=== PATIENT | male | born 1970 | race Caucasian/White ===

== ENCOUNTER 2017-07-11 10:43 | Emergency (ER) | payer BC, OTHER ==
[2017-07-11 11:25] VITALS: BP 151/85
[2017-07-11 11:29] LABS: ABSOLUTE LYMPHOCYTES (AUTO) 2.8 10^3/uL (0.5-4.7); ABSOLUTE MONOCYTES (AUTO) 0.6 10^3/uL (0.1-1.4); ABSOLUTE NEUT (AUTO) 10.6 10^3/uL (1.7-8.2); BASOPHILS % (AUTO) 0.3 % (0-2); EOSINOPHILS % (AUTO) 0.3 % (0-6); HEMATOCRIT 41.6 % (37.9-51.0); HEMOGLOBIN 14.2 g/dL (13.5-17.0); LYMPHOCYTES % (AUTO) 19.8 % (13-45); MEAN CORPUSCULAR HEMOGLOBIN 30.8 pg (27.0-33.4); MEAN CORPUSCULAR HGB CONC 34.1 g/dL (32.0-36.0); MEAN CORPUSCULAR VOLUME 90 fl (80-97); RED BLOOD COUNT 4.61 10^6/uL (4.35-5.55); RED CELL DISTRIBUTION WIDTH 13.4 % (11.5-14.0); SEGMENTED NEUTROPHILS % (AUTO) 75.6 % (42-78)
[2017-07-11 11:34] LABS: ANION GAP 11 (5-19); BLOOD UREA NITROGEN 15 mg/dL (7-20); CARBON DIOXIDE 28 mmol/L (22-30); CHLORIDE 103 mmol/L (98-107); CREATININE RESULT 1.06 mg/dL (0.52-1.25); GLUCOSE 128 mg/dL (75-110); POTASSIUM 3.6 mmol/L (3.6-5.0); SODIUM 141.8 mmol/L (137-145)
[2017-07-11 11:42] LABS: CALCIUM 9.5 mg/dL (8.4-10.2)
--- NOTE | 2017-07-11 11:47 | RADIOLOGY REPORT (SQ) ---
EXAM DESCRIPTION: CT HEAD WITHOUT COMPLETED DATE/TIME: 07/11/2017 11:27 am REASON FOR STUDY: headache COMPARISON: 01/02/2008 TECHNIQUE: Axial images acquired through the brain without intravenous contrast. Images reviewed wi th bone, brain and subdural windows. Images stored on PACS. All CT scanners at this facility use dose modulation, iterative reconstruction, and/or weight based d osing when appropriate to reduce radiation dose to as low as reasonably achievable (ALARA). [facility]: Dose Right [facility]: CareDose [facility]: Dose Right [facility]: Teradose 4D [facility]: Smart Technologies RADIATION DOSE: Up-to-date CT equipment and radiation dose reduction techniques were employed. CTDIv ol: 64.6 mGy. DLP: 1163 mGy-cm. mGy. LIMITATIONS: None. FINDINGS: VENTRICLES: Normal size and contour. CEREBRUM: No midline shift. There is encephalomalacia in left frontal lobe. There is no hemorrhage. Normal russo/white matter differentiation. No areas of low density in the white matter. CEREBELLUM: No masses. No hemorrhage. No alteration of density. No evidence for acute infarction. EXTRAAXIAL SPACES: No fluid collections. No masses. ORBITS AND GLOBE: No intra- or extraconal masses. Normal contour of globe without masses. CALVARIUM: No fracture. PARANASAL SINUSES: No fluid or mucosal thickening. SOFT TISSUES: No mass or hematoma. OTHER: No other significant finding. 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 COMMENT: Quality ID # [id number]: Final reports with documentation of one or more dose reduction techniques (e.g., Automated exposure control, adjustment of the mA and/or kV according to patient size, use of iterative reconstruction technique) TECHNICAL DOCUMENTATION: JOB ID: [id number] [employer]- All Rights Reserved
[2017-07-11 12:03] LABS: APPEARANCE,URINE SLIGHTLY-CLOUDY; BILIRUBIN,URINE NEGATIVE (NEGATIVE); GLUCOSE, URINE NEGATIVE (NEGATIVE); KETONES,URINE NEGATIVE (NEGATIVE); LEUKOCYTE ESTERASE,URINE NEGATIVE (NEGATIVE); NITRITE,URINE NEGATIVE (NEGATIVE); PROTEIN,URINE NEGATIVE (NEGATIVE); URINE SPECIFIC GRAVITY 1.015; UROBILINOGEN,URINE NEGATIVE mg/dL (<2.0)
[2017-07-11] MEDS ORDERED: DIPHENHYDRAMINE HCL 50 MG/ML VIAL IV ONE (12:05)
[2017-07-11] MEDS ORDERED: HYDROMORPHONE HCL INJ/PF 2 MG/ML AMPULE IV ONE (12:05)
--- NOTE | 2017-07-11 14:03 | ER Document Report ---
ED Headache - General Chief Complaint: Headache Stated Complaint: VISION PROBLEM Time Seen by Provider: 07/11/17 10:57 - HPI Patient complains to provider of: Headache - Sudden onset right-sided headache extending from his right eye into his right neck into his right shoulder. Patient reports: Occasional migraines - History of migraines but has not had any in years Onset: Just prior to arrival Onset was: Gradual Timing: Still present Quality of pain: Achy, Pressure, Throbbing Severity: Severe Context: denies: CO exposure, Head injury, Insect bite, Meningitis exposure, Tick bite, Other Preceding symptoms: Visual disturbance - States that his vision seems blurry Associated symptoms: None Exacerbated by: Light, Noise Similar symptoms previously: No Recently seen / treated by doctor: No - Related Data Allergies/Adverse Reactions: No Known Allergies Allergy (Unverified 07/11/17 11:12) Home Medications: Current Home Medications Duloxetine HCl 1 cap PO DAILY 07/11/17 [History] Gabapentin 1 cap PO BID 07/11/17 [History] Levothyroxine Sodium 1 tab PO DAILY 07/11/17 [History] Past Medical History - Social History Smoking Status: Current Every Day Smoker Frequency of alcohol use: Social Drug Abuse: None Family History: Reviewed & Not Pertinent - Past Medical History Cardiac Medical History: Reports: Hx Hypercholesterolemia Neurological Medical History: Reports: Hx Migraine Past Surgical History: Reports: Hx Abdominal Surgery, Hx Nose Surgery Review of Systems - Review of Systems Constitutional: No symptoms reported EENT: No symptoms reported Cardiovascular: No symptoms reported Respiratory: No symptoms reported Musculoskeletal: See HPI Neurological/Psychological: See HPI -: Yes All other systems reviewed and negative Physical Exam - Vital signs Vitals: Temp Resp BP Pulse Ox 98.5 F 25 H 151/85 H 93 07/11/17 11:22 07/11/17 11:22 07/11/17 11:22 07/11/17 11:22 - Notes Notes: PHYSICAL EXAM GENERAL: Alert, interacts well. HEAD: Normocephalic, atraumatic. EYES: Pupils equal, round, and reactive to light. Extraocular movements intact. ENT: Oral mucosa moist, tongue midline. NECK: Full range of motion. Supple. Trachea midline. LUNGS: Clear to auscultation bilaterally, no wheezes, rales, or rhonchi. No respiratory distress. HEART: Regular rate and rhythm. No murmurs, gallops, or rubs. ABDOMEN: Soft, nondistended, nontender. No guarding, rebound, or rigidity.. Bowel sounds present in all 4 quadrants. EXTREMITIES: Moves all 4 extremities spontaneously. No edema, radial and dorsalis pedis pulses 2/4 bilaterally. No cyanosis. NEUROLOGICAL: Alert and oriented x4. Normal speech. PSYCH: Normal affect, normal mood. SKIN: Warm, dry, normal turgor. No rashes or lesions noted. - HEENT Visual acuity- Right eye: 20/50 Visual acuity- Left eye: 20/30 Visual acuity- Both eyes: 20/25 Corrective lenses worn: No Course - Re-evaluation Re-evalutation: 07/11/17 14:02 Patient does not have any focal neurologic deficits, nuchal rigidity, vital signs are within normal limits no papilledema. Patient is otherwise no acute distress and hemodynamically stable. Low index for suspicion of acute subarachnoid hemorrhage, meningitis or mass. Low suspicion for acute life- threatening etiology with intact neuro exam therefore no additional imaging or laboratory testing is indicated. Will discharge patient home with strict follow -up with PCP for blood pressure check within the next week. - Vital Signs Vital signs: Temp Pulse Resp BP Pulse Ox 98.5 F 25 H 151/85 H 93 07/11/17 11:22 07/11/17 11:22 07/11/17 11:22 07/11/17 11:22 - Laboratory Result Diagrams: 07/11/17 10:50 07/11/17 10:50 Laboratory results interpreted by me: 07/11/17 07/11/17 10:50 10:50 WBC 14.0 H Absolute Neutrophils 10.6 H Glucose 128 H - Diagnostic Test Radiology reviewed: Image reviewed, Reports reviewed Discharge - Discharge Clinical Impression: Migraine Qualifiers: Migraine type: unspecified Status migrainosus presence: without status migrainosus Intractability: not intractable Qualified Code(s): G43.909 - Migraine, unspecified, not intractable, without status migrainosus Condition: Good Disposition: HOME, SELF-CARE Additional Instructions: HEADACHE: The physician does not feel that the headache you are experiencing has a serious underlying cause. Most headaches are due to emotional stress, with resultant muscle tension (tension headache). Occasionally, headaches are secondary to changes in the blood vessels of the scalp (vascular headache and migraine headache). Sometimes, a headache is the first symptom of another developing illness, such as a viral infection. You have no evidence of stroke, bleeding, meningitis, or other serious cause of your headache. The treatment of headaches varies with the severity and cause of the pain. Not all headaches need pain shots. In fact, there is evidence that using narcotics for headaches may make them worse in the long run. The physician will determine the therapy that's in your best interest. If you develop a fever, if the headache is different from any you've previously experienced, or if the headache progressively worsens, then call your physician at once or go to the emergency room. USE OF DIPHENHYDRAMINE: Diphenhydramine (Benadryl) is an antihistamine and has been recommended to help treat your headache and to prevent side effects of other medications used to treat headaches. The medication can be repeated four times daily. Age Elixir (12.5 mg/tsp) 25 mg pill adult 1-2 tabs Antihistamines may cause drowsiness, especially with the first dose. Do not operate machinery or drive while under the effects of the medication. Do not combine the medication with alcohol, or with any other medication without talking to your doctor. PAIN MEDICATION INJECTION: You have received an injection of a pain medication. You should experience significant pain relief within 45 minutes. This drug is a narcotic - - it will impair your judgement, slow your reaction time and make you sleepy ( as well as relieve your pain). Narcotics also can cause nausea. You should not drive, work with machinery, or perform any task requiring mental alertness until all effects of the medication are gone -- six to eight hours. Do not take any alcohol, or sedatives, and do not take any other medication without checking with your physician. FOLLOW-UP CARE: If you have been referred to a physician for follow-up care, call the physician s office for an appointment as you were instructed or within the next two days. If you experience worsening or a significant change in your symptoms, notify the physician immediately or return to the Emergency Department at any time for re-evaluation. Forms: Return to Work Referrals: [facility] [Provider Group] - Follow up in 3-5 days
--- NOTE | 2017-07-12 08:35 | EKG REPORT ---
SEVERITY:- NORMAL ECG - SINUS RHYTHM : Confirmed by: Uli Madsen 12-Jul-2017 08:34:45
== END 2017-07-11 14:32 | disposition home or self-care (01) ==
LOC: ER 10:43
DX: G43.909 Migraine, unspecified, not intractable, without status migrainosus (principal); F17.200 Nicotine dependence, unspecified, uncomplicated
CPT/HCPCS: 93005; 99284; 96374; 96375; 36415; 85025; 80048; 81001; 70450; 93010; J1200; J1170

== ENCOUNTER 2017-07-12 12:29 | Emergency (ER) | payer OTHER ==
--- NOTE | 2017-07-12 13:05 | RADIOLOGY REPORT (SQ) ---
EXAM DESCRIPTION: CT HEAD WITHOUT COMPLETED DATE/TIME: 07/12/2017 12:37 pm REASON FOR STUDY: bed 20 stroke alert COMPARISON: 01/02/2008, 07/11/2017 CT brain TECHNIQUE: Axial images acquired through the brain without intravenous contrast. Images reviewed wi th bone, brain and subdural windows. Images stored on PACS. All CT scanners at this facility use dose modulation, iterative reconstruction, and/or weight based d osing when appropriate to reduce radiation dose to as low as reasonably achievable (ALARA). [facility]: Dose Right [facility]: CareDose [facility]: Dose Right [facility]: Teradose 4D [facility]: [employer] RADIATION DOSE: 64 mGy. LIMITATIONS: None. FINDINGS: Since the study yesterday, patient has developed a moderate size nonhemorrhagic right occi pital infarct. A subacute appearing left frontal perisylvian infarct is present with low attenuation in the cortex a nd subcortical white matter with sulcal effacement on axial image 17 through 20. This is stable comp ared to yesterday's study More chronic appearing left frontal cortical infarct high over the convexity stable compared to yeste rday's study. Chronic appearing right frontal perisylvian cortex and subcortical infarct, unchanged from yesterday. No acute intracranial hemorrhage. No midline shift. Ventricles and extra-axial CSF spaces are unrem arkable. Orbits, paranasal sinuses, mastoid air cells unremarkable. No calvarial fracture. This report was discussed with Dr. Mckee in the emergency room IMPRESSION: Since yesterday's CT, patient has developed a moderate size right occipital infarct, non hemorrhagic. Subacute infarct in the left frontal perisylvian region Leon chronic appearing infarcts in the bifrontal cortex and subcortical white matter high over the c onvexities COMMENT: Pertinent findings on the imaging study reported as a CRITICAL RESULT to Dr Mckee at12:55 on 07/12/2017. Category of Critical Result: CT code stroke Quality ID # 436: Final reports with documentation of one or more dose reduction techniques (e.g., Au tomated exposure control, adjustment of the mA and/or kV according to patient size, use of iterative reconstruction technique) TECHNICAL DOCUMENTATION: JOB ID: [id number] [employer]- All Rights Reserved
--- NOTE | 2017-07-12 13:06 | RADIOLOGY REPORT (SQ) ---
EXAM DESCRIPTION: CHEST SINGLE VIEW COMPLETED DATE/TIME: 07/12/2017 12:41 pm REASON FOR STUDY: bed 20 stroke alert COMPARISON: None. EXAM PARAMETERS: NUMBER OF VIEWS: One view. TECHNIQUE: Single frontal radiographic view of the chest acquired. RADIATION DOSE: NA LIMITATIONS: None. FINDINGS: LUNGS AND PLEURA: No opacities, masses or pneumothorax. No pleural effusion. MEDIASTINUM AND HILAR STRUCTURES: No masses. Contour normal. HEART AND VASCULAR STRUCTURES: Heart normal in size. Normal vasculature. BONES: No acute findings. HARDWARE: None in the chest. OTHER: No other significant finding. IMPRESSION: NO ACUTE RADIOGRAPHIC FINDING IN THE CHEST. TECHNICAL DOCUMENTATION: JOB ID: [id number]
[2017-07-12 13:08] LABS: PROTHROMBIN TIME 12.5 SEC (11.4-15.4)
[2017-07-12 13:09] LABS: PARTIAL THROMBOPLASTIN TIME 23.7 SEC (23.5-35.8)
[2017-07-12] MEDS ORDERED: MORPHINE SULFATE 10 MG/ML INJ IV ONE ×2 (13:14→16:34)
[2017-07-12] MEDS ORDERED: ONDANSETRON HCL INJ/PF 4 MG/2 ML SDV IV ONE ×2 (13:14→21:57)
--- NOTE | 2017-07-12 13:20 | ER Document Report ---
ED General - General Information source: Patient - HPI Onset: Yesterday Onset/Duration: Sudden Quality of pain: Throbbing Associated symptoms: Other - see above <CRYSTAL PULIDO - Last Filed: 07/12/17 13:29> <RUBEN WILLIAMSON - Last Filed: 07/12/17 16:50> - General Chief Complaint: S/S of Possible Stroke Stated Complaint: POSSIBLE STROKE Time Seen by Provider: 07/12/17 12:57 Notes: Patient is a 47 year old male who presents to the ED with complaints of a throbbing headache in the back on the right with sudden onset 1100 yesterday. Patient states it felt like he was kicked in the back of the head and he was driving and had to slab puller. Patient states he also has blurred vision that is worse peripherally bilaterally. He denies a history of headaches or migraines and has not been evaluated in the past prior to this episode. He was seen in the ED yesterday for this same headache. He denies nausea or vomiting or weakness in is extremities. He also has some photophobia. (CRYSTAL PULIDO) - Related Data Allergies/Adverse Reactions: No Known Allergies Allergy (Unverified 07/11/17 11:12) Past Medical History - General Information source: Patient - Social History Smoking Status: Current Every Day Smoker Cigarette use (# per day): Yes - 1- 1 1/2 pack Family History: Reviewed & Not Pertinent - Past Medical History Cardiac Medical History: Reports: Hx Hypercholesterolemia Psychiatric Medical History: Reports: Hx Depression, Hx Post Traumatic Stress Disorder Past Surgical History: Reports: Hx Abdominal Surgery, Hx Nose Surgery <CRYSTAL PULIDO - Last Filed: 07/12/17 13:29> Review of Systems - Review of Systems Constitutional: No symptoms reported EENT: See HPI, Blurred vision - worse in periphreals bilaterally, Other - photophobia Cardiovascular: No symptoms reported Respiratory: No symptoms reported Gastrointestinal: See HPI. denies: Nausea, Vomiting Genitourinary: No symptoms reported Male Genitourinary: No symptoms reported Musculoskeletal: No symptoms reported Skin: No symptoms reported Hematologic/Lymphatic: No symptoms reported Neurological/Psychological: See HPI, Headaches. denies: Weakness <CRYSTAL PULIDO - Last Filed: 07/12/17 13:29> Physical Exam - General General appearance: Appears well, Alert, Other - HEENT Head: Normocephalic, Atraumatic Eyes: Other - states vision is blurry, worse peripherally and improves some centrally Extraocular movements intact: Yes Pupils: PERRL Neck: Normal - Respiratory Respiratory status: No respiratory distress Breath sounds: Normal - Cardiovascular Rhythm: Regular, Other - with occasional premature beat Heart sounds: Normal auscultation Murmur: No - Abdominal Distension: No distension - Back Back: Normal - Extremities General upper extremity: Normal inspection, Normal ROM General lower extremity: Normal inspection, Normal ROM - Neurological Neuro grossly intact: Yes Cognition: Normal Orientation: AAOx4 Jie Coma Scale Eye Opening: Spontaneous [place] Coma Scale Verbal: Oriented Jie Coma Scale Motor: Obeys Commands Jie Coma Scale Total: 15 Speech: Normal Cerebellar coordination: Other - no ataxia at all - Psychological Associated symptoms: Normal affect, Normal mood - Skin Skin Temperature: Warm Skin Moisture: Dry Skin Color: Normal <CRYSTAL PULIDO - Last Filed: 07/12/17 13:29> - Vital signs Vitals: Pulse Ox 97 07/12/17 12:40 Course - Laboratory Result Diagrams: 07/12/17 12:55 07/12/17 12:55 <CRYSTAL PULIDO - Last Filed: 07/12/17 13:29> - Laboratory Result Diagrams: 07/12/17 12:55 07/12/17 12:55 - Diagnostic Test Radiology reviewed: Image reviewed, Reports reviewed - CT scan shows a new moderate-sized nonhemorrhagic right occipital infarct with a stable subacute left frontal perisylvian infarct and chronic right frontal perisylvian cortical and subcortical infarcts. MRI shows the right occipital infarct to be recent and the left frontal infarct to be a few days old. - EKG Interpretation by Me EKG shows normal: Picher, Intervals, QRS Complexes, ST-T Waves Rate: Normal - 61 Rhythm: PVC's - Ventricular trigeminy When compared to previous EKG there are: Changes noted - Consults Dr. Jeffries Time consulted: 16:30 Consulted provider: other - Dr. Jeffries of the neurology service at [facility] will accept the patient for Dr. Caraballo's service. The patient will be put on a waiting list. The recommendation is to give only 1 full strength aspirin daily at this time. - Transfer of Care Care transferred to following provider: Dr. Awad <RUBEN WILLIAMSON - Last Filed: 07/12/17 16:50> - Re-evaluation Re-evalutation: 07/12/17 15:49 The patient suffered a stroke yesterday which is apparent on the CT scan today. He also suffered a stroke a few days ago. As he has 1 stroke that is a few days old and another stroke which is just over one day old, he is not a TPA candidate. (RUBEN WILLIAMSON) - Vital Signs Vital signs: Temp Pulse Resp BP Pulse Ox 57 L 20 152/81 H 94 07/12/17 15:40 07/12/17 15:45 07/12/17 15:45 07/12/17 15:45 - Laboratory Laboratory results interpreted by me: 07/12/17 07/12/17 12:55 12:55 WBC 15.7 H Absolute Neutrophils 9.7 H Absolute Lymphocytes 5.1 H Total Protein 6.2 L - Transfer of Care Notes: 07/12/17 16:50 Patient is pending transfer to [facility]. (RUBEN WILLIAMSON) Discharge <CRYSTAL PULIDO - Last Filed: 07/12/17 13:29> <RUBEN WILLIAMSON - Last Filed: 07/12/17 16:50> - Discharge Clinical Impression: Blurred vision, bilateral CVA (cerebrovascular accident) Qualifiers: CVA mechanism: embolism Precerebral and cerebral artery: unspecified cerebral artery Qualified Code(s): I63.40 - Cerebral infarction due to embolism of unspecified cerebral artery Condition: Stable Disposition: [facility] Scribe Documentation - Scribe Written by Scribe:: jose guadalupe Mandujano, 07/12/2017, 1315 acting as scribe for :: Rylee <CRYSTAL PULIDO - Last Filed: 07/12/17 13:29>
[2017-07-12 13:27] LABS: ABSOLUTE BASOPHILS # (AUTO) 0.1 10^3/uL (0.0-0.2); ABSOLUTE EOSINOPHILS # (AUTO) 0.1 10^3/uL (0.0-0.6); ABSOLUTE LYMPHOCYTES (AUTO) 5.1 10^3/uL (0.5-4.7); ABSOLUTE MONOCYTES (AUTO) 0.7 10^3/uL (0.1-1.4); ABSOLUTE NEUT (AUTO) 9.7 10^3/uL (1.7-8.2); BASOPHILS % (AUTO) 0.7 % (0-2); EOSINOPHILS % (AUTO) 0.5 % (0-6); HEMATOCRIT 40.7 % (37.9-51.0); HEMOGLOBIN 14.1 g/dL (13.5-17.0); HGB HCT DIFFERENCE 1.6; LYMPHOCYTES % (AUTO) 32.4 % (13-45); MEAN CORPUSCULAR HGB CONC 34.7 g/dL (32.0-36.0); MEAN CORPUSCULAR VOLUME 89 fl (80-97); MONOCYTES % (AUTO) 4.7 % (3-13); RED BLOOD COUNT 4.57 10^6/uL (4.35-5.55); RED CELL DISTRIBUTION WIDTH 13.6 % (11.5-14.0); SEGMENTED NEUTROPHILS % (AUTO) 61.7 % (42-78); WHITE BLOOD COUNT 15.7 10^3/uL (4.0-10.5)
[2017-07-12 13:31] LABS: ALANINE AMINOTRANSFERASE 42 U/L (21-72); ALBUMIN 3.8 g/dL (3.5-5.0); ALKALINE PHOSPHATASE 71 U/L (38-126); ANION GAP 8 (5-19); ASPARTATE AMINO TRANSFERASE 21 U/L (17-59); BILIRUBIN,DIRECT 0.4 mg/dL (0.0-0.4); BILIRUBIN,TOTAL 0.6 mg/dL (0.2-1.3); BLOOD UREA NITROGEN 13 mg/dL (7-20); CALCIUM 9.4 mg/dL (8.4-10.2); CARBON DIOXIDE 25 mmol/L (22-30); CHLORIDE 104 mmol/L (98-107); CREATINE KINASE 95 U/L (55-170); CREATINE KINASE MB 0.74 ng/mL (<4.55); CREATININE RESULT 0.92 mg/dL (0.52-1.25); GLUCOSE 92 mg/dL (75-110); POTASSIUM 3.9 mmol/L (3.6-5.0); SODIUM 137.1 mmol/L (137-145); TOTAL PROTEIN 6.2 g/dL (6.3-8.2)
[2017-07-12 13:32] LABS: TROPONIN I < 0.012 ng/mL
--- NOTE | 2017-07-12 15:47 | RADIOLOGY REPORT (SQ) ---
EXAM DESCRIPTION: MRI HEAD WITHOUT; MRA HEAD WITHOUT COMPLETED DATE/TIME: 07/12/2017 3:28 pm; 07/12/2017 3:27 pm REASON FOR STUDY: acute R occipital infarct, L frontal subacute inf COMPARISON: CT brain 01/02/2008, 07/11/2017, 07/12/2017 TECHNIQUE: Multiplanar imaging includes non-contrasted T1, T2, FLAIR, and diffusion with ADC map seq uences. Images stored on PACS. MRA exam [place] was performed with 3D [id number] imaging. Source images and maximum in tensity projected images were reviewed. LIMITATIONS: None. FINDINGS: ANATOMY: No developmental anomalies. Normal vascular flow voids. Pituitary fossa normal. CSF SPACES: Normal in size and contour. No hemorrhage. CEREBRUM: A moderate size acute nonhemorrhagic infarct is present along the right inferior occipital lobe, best shown on coronal T2 images 21 through 29. This is new compared to CT exam 07/11/2017 and s imilar compared to CT earlier today. There is a left frontal perisylvian early subacute nonhemorrhagic infarct unchanged from CT exams 06/30 and 07/12/2017 A chronic appearing nonhemorrhagic infarct right frontal perisylvian cortex and subcortical white mat ter coronal image 15 and axial image 19. Remainder of the brain parenchyma is otherwise unremarkable. No acute intracranial hemorrhage. No m idline shift. There is sulcal effacement in the right occipital and left frontal regions from acute/ early subacute infarcts. POSTERIOR FOSSA: No signal alteration. No hemorrhage. No edema, masses or mass effect. Internal toña tory canals, cerebello-pontine angles, mastoids normal. DIFFUSION IMAGING: Positive for acute ischemic change inferior right occipital lobe, early subacute i schemic change left frontal perisylvian region. ORBITS: No masses. Globes normal. PARANASAL SINUSES: No fluid levels. Mucosa normal. [place] MRA: No [place] stenosis, vascular malformation, or aneurysm. No vessel wall irregularity to suggest vasculitis These findings were discussed with Dr. Mckee in the emergency room. IMPRESSION: Nonhemorrhagic infarcts in multiple vascular distributions, worrisome for embolic diseas e. Acute right occipital, early subacute left frontal perisylvian infarct. Unremarkable [place] MRA EVIDENCE OF ACUTE STROKE: NO. TECHNICAL DOCUMENTATION: JOB ID: [id number]- All Rights Reserved
--- NOTE | 2017-07-12 15:47 | RADIOLOGY REPORT (SQ) ---
EXAM DESCRIPTION: MRI HEAD WITHOUT; MRA HEAD WITHOUT COMPLETED DATE/TIME: 07/12/2017 3:28 pm; 07/12/2017 3:27 pm REASON FOR STUDY: acute R occipital infarct, L frontal subacute inf COMPARISON: CT brain 01/02/2008, 07/11/2017, 07/12/2017 TECHNIQUE: Multiplanar imaging includes non-contrasted T1, T2, FLAIR, and diffusion with ADC map seq uences. Images stored on PACS. MRA exam [place] was performed with 3D [id number] imaging. Source images and maximum in tensity projected images were reviewed. LIMITATIONS: None. FINDINGS: ANATOMY: No developmental anomalies. Normal vascular flow voids. Pituitary fossa normal. CSF SPACES: Normal in size and contour. No hemorrhage. CEREBRUM: A moderate size acute nonhemorrhagic infarct is present along the right inferior occipital lobe, best shown on coronal T2 images 21 through 29. This is new compared to CT exam 07/11/2017 and s imilar compared to CT earlier today. There is a left frontal perisylvian early subacute nonhemorrhagic infarct unchanged from CT exams 06/30 and 07/12/2017 A chronic appearing nonhemorrhagic infarct right frontal perisylvian cortex and subcortical white mat ter coronal image 15 and axial image 19. Remainder of the brain parenchyma is otherwise unremarkable. No acute intracranial hemorrhage. No m idline shift. There is sulcal effacement in the right occipital and left frontal regions from acute/ early subacute infarcts. POSTERIOR FOSSA: No signal alteration. No hemorrhage. No edema, masses or mass effect. Internal toña tory canals, cerebello-pontine angles, mastoids normal. DIFFUSION IMAGING: Positive for acute ischemic change inferior right occipital lobe, early subacute i schemic change left frontal perisylvian region. ORBITS: No masses. Globes normal. PARANASAL SINUSES: No fluid levels. Mucosa normal. [place] MRA: No [place] stenosis, vascular malformation, or aneurysm. No vessel wall irregularity to suggest vasculitis These findings were discussed with Dr. Mckee in the emergency room. IMPRESSION: Nonhemorrhagic infarcts in multiple vascular distributions, worrisome for embolic diseas e. Acute right occipital, early subacute left frontal perisylvian infarct. Unremarkable [place] MRA EVIDENCE OF ACUTE STROKE: NO. TECHNICAL DOCUMENTATION: JOB ID: [id number]- All Rights Reserved
[2017-07-12 16:04] LABS: APPEARANCE,URINE CLEAR; BILIRUBIN,URINE NEGATIVE (NEGATIVE); GLUCOSE, URINE NEGATIVE (NEGATIVE); KETONES,URINE NEGATIVE (NEGATIVE); LEUKOCYTE ESTERASE,URINE NEGATIVE (NEGATIVE); NITRITE,URINE NEGATIVE (NEGATIVE); PROTEIN,URINE NEGATIVE (NEGATIVE); URINE SPECIFIC GRAVITY 1.006; UROBILINOGEN,URINE NEGATIVE mg/dL (<2.0)
[2017-07-12 16:19] LABS: URINE BARBITURATES SCREEN NEGATIVE; URINE METHADONE SCREEN NEGATIVE; URINE OPIATES LOW NEGATIVE; URINE PHENCYCLIDINE SCREEN NEGATIVE
[2017-07-12] MEDS ORDERED: ASPIRIN 325 MG TABLET PO ONE (16:35)
--- NOTE | 2017-07-12 17:42 | RADIOLOGY REPORT (SQ) ---
EXAM DESCRIPTION: CAROTID DOPPLER COMPLETED DATE/TIME: 07/12/2017 5:25 pm REASON FOR STUDY: bilateral CVA's COMPARISON: None. TECHNIQUE: Grayscale ultrasound, Doppler velocity and spectra, and color Doppler images acquired of the extra-cranial carotid and vertebral arteries. Images stored on PACS. LIMITATIONS: None. FINDINGS: RIGHT CAROTID CCA Velocities: Within normal limits. ICA Velocities Peak systolic 0.89 m/s. End diastolic 0.41 m/s. Proximal ICA/CCA peak systolic ratio 1.3. Spectra normal. No significant plaque. LEFT CAROTID CCA Velocities: Within normal limits. ICA Velocities Peak systolic 0.85 m/s. End diastolic 0.38 m/s. Proximal ICA/CCA peak systolic ratio 1.1. Spectra normal. No significant plaque. VERTEBRAL ARTERIES: Antegrade flow. Normal waveforms. SUBCLAVIAN ARTERIES: No finding. OTHER: No other significant finding. IMPRESSION: NO HEMODYNAMICALLY SIGNIFICANT STENOSIS. COMMENT: Quality ID #[id number]: Velocity criteria are extrapolated from the diameter data as defined by t he Society of Radiologists in Ultrasound Consensus Conference. Radiology 2003: 229; 340-346. TECHNICAL DOCUMENTATION: JOB ID: [id number] [employer]- All Rights Reserved
[2017-07-12] MEDS: MORPHINE SULFATE 10 MG/ML INJ IV PRN (20:42)
[2017-07-12] MEDS ORDERED: LORAZEPAM INJ 2 MG/1 ML VIAL IV ONE (21:23)
--- NOTE | 2017-07-12 21:52 | RADIOLOGY REPORT (SQ) ---
EXAM DESCRIPTION: CT HEAD WITHOUT COMPLETED DATE/TIME: 07/12/2017 9:29 pm REASON FOR STUDY: Abrupt DOWNEY worsening. COMPARISON: Earlier the same day. TECHNIQUE: Axial images acquired through the brain without intravenous contrast. Images reviewed wi th bone, brain and subdural windows. Images stored on PACS. All CT scanners at this facility use dose modulation, iterative reconstruction, and/or weight based d osing when appropriate to reduce radiation dose to as low as reasonably achievable (ALARA). [facility]: Dose Right [facility]: CareDose [facility]: Dose Right [facility]: Teradose 4D [facility]: [employer] RADIATION DOSE: Up-to-date CT equipment and radiation dose reduction techniques were employed. CTDIv ol: 64.6 mGy. DLP: 1163 mGy-cm. mGy. LIMITATIONS: None. FINDINGS: VENTRICLES: Normal size and contour. CEREBRUM: Areas of decreased attenuation in the left frontal lobe, right frontal lobe and right occip ital lobe are stable in appearance. No intracranial hemorrhage. No midline shift. No change in the mass effect associated with the left frontal lobe and right occipital lobe lesions. CEREBELLUM: No masses. No hemorrhage. No alteration of density. No evidence for acute infarction. EXTRAAXIAL SPACES: No fluid collections. No masses. ORBITS AND GLOBE: No intra- or extraconal masses. Normal contour of globe without masses. CALVARIUM: No fracture. PARANASAL SINUSES: No fluid or mucosal thickening. SOFT TISSUES: No mass or hematoma. OTHER: No other significant finding. IMPRESSION: No interval change. Evolving infarcts. No hemorrhage. COMMENT: Quality ID # [id number]: Final reports with documentation of one or more dose reduction techniques (e.g., Automated exposure control, adjustment of the mA and/or kV according to patient size, use of iterative reconstruction technique) TECHNICAL DOCUMENTATION: JOB ID: [id number] [employer]- All Rights Reserved
--- NOTE | 2017-07-12 22:15 | ER Document Report ---
Doctor's Note Notes: 07/12/17 22:09 Patient awaiting transfer still. He developed increasing headache which seemed like a fairly significant changes or repeat CT was done to ensure there is no hemorrhage. This showed no change in mass-effect and no hemorrhage. We will continue symptomatic care at this point. Carotid ultrasound showed no significant stenosis. 07/12/17 22:15 Spoke with the patient and family and reviewed CT findings with them. Headache seems slightly improved after receiving some medication here. We are still awaiting a bed at [facility]. (MODESTO HINOJOSA) 07/13/17 09:50 Patient has been reevaluated multiple times, patient has normal speech is in no distress, is otherwise well-appearing. I evaluated the patient physically lab work and imaging and I had a long discussion with him multiple times. He has been given pain control for his headache EKG lab work were performed for his new onset chest pain. Patient will require further evaluation. I did explain to him that first CT did not show an acute stroke however the repeat did show the stroke and that it was appropriate discharge at that time (CHASTITY DORANTES)
--- NOTE | 2017-07-12 22:53 | EKG REPORT ---
SEVERITY:- ABNORMAL ECG - SINUS RHYTHM VENTRICULAR TRIGEMINY : Confirmed by: Uli Madsen 12-Jul-2017 22:53:34
[2017-07-13] MEDS: MORPHINE SULFATE 10 MG/ML INJ IV PRN (01:46)
[2017-07-13] MEDS ORDERED: MORPHINE SULFATE 10 MG/ML INJ IV ONE ×2 (04:08→07:52)
[2017-07-13] MEDS ORDERED: NICOTINE 14 MG/24 HR PATCH.TD24 TD ONE (09:14)
[2017-07-13 09:37] LABS: CREATINE KINASE MB 0.92 ng/mL (<4.55)
[2017-07-13 09:38] LABS: TROPONIN I < 0.012 ng/mL
[2017-07-13 09:54] VITALS: BP 142/86
[2017-07-13] MEDS ORDERED: ASPIRIN 325 MG TABLET PO SCH (10:00)
--- NOTE | 2017-07-13 10:17 | EKG REPORT ---
SEVERITY:- ABNORMAL ECG - SINUS RHYTHM VENTRICULAR TRIGEMINY : Confirmed by: Uli Madsen 13-Jul-2017 10:16:08
== END 2017-07-13 10:00 | disposition short-term general hospital (02) ==
LOC: ER 12:29
DX: I63.40 Cerebral infarction due to embolism of unspecified cerebral artery (principal); H53.8 Other visual disturbances; R51 Headache; W50.1XXA Accidental kick by another person, initial encounter; F17.210 Nicotine dependence, cigarettes, uncomplicated
CPT/HCPCS: 93005 ×2; 96376; 99285; 96374; 96375; 36415; 82553; 82550; 85025; 85652; 85610; 85730; 80053; 81001; 84484; 80307; 93880; 70551; 70544; 71010; 70450; 93010 ×2; J2270 ×2; J2060; J2405

== ENCOUNTER 2017-09-13 12:56 | Emergency (ER) | payer OTHER ==
[2017-09-13 13:01] VITALS: BP 135/87
--- NOTE | 2017-09-13 13:56 | RADIOLOGY REPORT (SQ) ---
EXAM DESCRIPTION: CT HEAD WITHOUT COMPLETED DATE/TIME: 09/13/2017 1:48 pm REASON FOR STUDY: visual changes L sided DOWNEY COMPARISON: 07/12/2017. TECHNIQUE: Axial images acquired through the brain without intravenous contrast. Images reviewed wi th bone, brain and subdural windows. Images stored on PACS. All CT scanners at this facility use dose modulation, iterative reconstruction, and/or weight based d osing when appropriate to reduce radiation dose to as low as reasonably achievable (ALARA). [facility]: Dose Right [facility]: CareDose [facility]: Dose Right [facility]: Teradose 4D [facility]: Smart [employer] RADIATION DOSE: Up-to-date CT equipment and radiation dose reduction techniques were employed. CTDIv ol: 64.6 mGy. DLP: 1163 mGy-cm. mGy. LIMITATIONS: None. FINDINGS: VENTRICLES: Normal size and contour. CEREBRUM: No masses. No hemorrhage. No midline shift. Old infarcts in the right and left frontal l obe and right occipital lobe. No evidence for acute infarction. Normal russo/white matter differentia tion. No areas of low density in the white matter. CEREBELLUM: No masses. No hemorrhage. No alteration of density. No evidence for acute infarction. EXTRAAXIAL SPACES: No fluid collections. No masses. ORBITS AND GLOBE: No intra- or extraconal masses. Normal contour of globe without masses. CALVARIUM: No fracture. PARANASAL SINUSES: No fluid or mucosal thickening. SOFT TISSUES: No mass or hematoma. OTHER: No other significant finding. IMPRESSION: STABLE OLD INFARCTS IN THE RIGHT AND LEFT FRONTAL LOBES AND RIGHT OCCIPITAL LOBE. NO AC WASHOE FINDINGS. EVIDENCE OF ACUTE STROKE: NO. COMMENT: Quality ID # [id number]: Final reports with documentation of one or more dose reduction techniques (e.g., Automated exposure control, adjustment of the mA and/or kV according to patient size, use of iterative reconstruction technique) TECHNICAL DOCUMENTATION: JOB ID: [id number] [employer]- All Rights Reserved
[2017-09-13] MEDS ORDERED: NORMAL SALINE 1000 ML 1,000 ML IV ONE (14:37)
[2017-09-13] MEDS ORDERED: METOCLOPRAMIDE HCL INJ/PF 10 MG/2 ML SDV IV ONE (14:37)
[2017-09-13] MEDS ORDERED: DIPHENHYDRAMINE HCL 50 MG/ML VIAL IV ONE (14:37)
[2017-09-13] MEDS ORDERED: KETOROLAC TROMETHAMINE INJ/PF 30 MG/1 ML SDV IV ONE (14:37)
--- NOTE | 2017-09-13 14:43 | ER Document Report ---
ED Headache - General Chief Complaint: Vision Problem Stated Complaint: HEAD PAIN Time Seen by Provider: 09/13/17 14:29 Notes: The patient is a 47-year-old male, past medical history prior ischemic CVAs, presents with 2 days of a left frontal headache and mild left eye pain when the headache intensifies. Patient says that he has had headaches in the past that were similar, but they have not lasted this long. He denies head injury, neck pain, current blurry vision, numbness, tingling, ataxia, fevers, neck stiffness , chest pain, shortness of breath or facial droop. TRAVEL OUTSIDE OF THE [place] IN LAST 30 DAYS: No - Related Data Allergies/Adverse Reactions: No Known Allergies Allergy (Verified 09/13/17 13:01) Past Medical History - General Information source: Patient - Social History Smoking Status: Current Every Day Smoker Chew tobacco use (# tins/day): No Frequency of alcohol use: None Drug Abuse: None Family History: Reviewed & Not Pertinent Patient has suicidal ideation: No Patient has homicidal ideation: No - Past Medical History Cardiac Medical History: Reports: Hx Hypercholesterolemia Pulmonary Medical History: Reports: Hx Tuberculosis Neurological Medical History: Reports: Hx Migraine Renal/ Medical History: Denies: Hx Peritoneal Dialysis Psychiatric Medical History: Reports: Hx Depression, Hx Post Traumatic Stress Disorder Past Surgical History: Reports: Hx Abdominal Surgery - hernia x2, Hx Nose Surgery, Hx Orthopedic Surgery - knee Review of Systems - Review of Systems Notes: REVIEW OF SYSTEMS: CONSTITUTIONAL: -fevers, -chills EENT: +eye pain, -difficulty swallowing, -nasal congestion CARDIOVASCULAR:-chest pain, -syncope. RESPIRATORY: -cough, -SOB GASTROINTESTINAL: -abdominal pain, - nausea, -vomiting, -diarrhea GENITOURINARY: -dysuria, -hematuria MUSCULOSKELETAL: -back pain, -neck pain SKIN: -rash or skin lesions. HEMATOLOGIC: -easy bruising or bleeding. LYMPHATIC: -swollen, enlarged glands. NEUROLOGICAL: -altered mental status or loss of consciousness, +headache, - neurologic symptoms PSYCHIATRIC: -anxiety, -depression. ALL OTHER SYSTEMS REVIEWED AND NEGATIVE. Physical Exam - Vital signs Vitals: Temp Pulse Resp BP Pulse Ox 97.7 F 75 16 135/87 H 97 09/13/17 12:59 09/13/17 12:59 09/13/17 12:59 09/13/17 12:59 11/15/17 12:59 - Notes Notes: PHYSICAL EXAMINATION: GENERAL: Well-appearing, well-nourished and in no acute distress. HEAD: Atraumatic, normocephalic. EYES: Pupils equal round and reactive to light, extraocular movements intact, sclera anicteric, conjunctiva are normal. ENT: nares patent, oropharynx clear without exudates. Moist mucous membranes. NECK: Normal range of motion, supple without lymphadenopathy LUNGS: Breath sounds clear to auscultation bilaterally and equal. No wheezes rales or rhonchi. HEART: Regular rate and rhythm without murmurs ABDOMEN: Soft, nontender, normoactive bowel sounds. No guarding, no rebound. No masses appreciated. EXTREMITIES: Normal range of motion, no pitting or edema. No cyanosis. NEUROLOGICAL: Cranial nerves grossly intact. Normal speech, normal gait. Normal sensory and motor exams. PSYCH: Normal mood, normal affect. SKIN: Warm, Dry, normal turgor, no rashes or lesions noted. Course - Re-evaluation Re-evalutation: Patient's head CT does not show any acute abnormalities, other than his prior CVAs. He said that he is only having left eye pain when his headache intensifies and he has no blurry vision at rest. His headache is consistent with a cluster headache. After 15 minutes of nonrebreather oxygen and a headache cocktail, symptoms have completely resolved. He has no focal neuro symptoms to suggest a acute ischemic stroke. He has a neurologist at [facility], but he requesting referral to one in [place]. Patient instructed to continue NSAIDs and follow-up with his primary care physician and neurologist for further evaluation and treatment. Given very strict return precautions and he understands. - Vital Signs Vital signs: Temp Pulse Resp BP Pulse Ox 97.7 F 75 16 135/87 H 97 09/13/17 12:59 09/13/17 12:59 09/13/17 12:59 09/13/17 12:59 09/13/17 12:59 - Diagnostic Test Radiology reviewed: Image reviewed, Reports reviewed Radiology results interpreted by me: Head CT: NAD Discharge - Discharge Clinical Impression: Headache Qualifiers: Headache type: cluster Headache chronicity pattern: unspecified pattern Intractability: not intractable Qualified Code(s): G44.009 - Cluster headache syndrome, unspecified, not intractable Condition: Stable Disposition: HOME, SELF-CARE Additional Instructions: HEADACHE: The physician does not feel that the headache you are experiencing has a serious underlying cause. Most headaches are due to emotional stress, with resultant muscle tension (tension headache). Occasionally, headaches are secondary to changes in the blood vessels of the scalp (vascular headache and migraine headache). Sometimes, a headache is the first symptom of another developing illness, such as a viral infection. You have no evidence of stroke, bleeding, meningitis, or other serious cause of your headache. The treatment of headaches varies with the severity and cause of the pain. Not all headaches need pain shots. In fact, there is evidence that using narcotics for headaches may make them worse in the long run. The physician will determine the therapy that's in your best interest. If you develop a fever, if the headache is different from any you've previously experienced, or if the headache progressively worsens, then call your physician at once or go to the emergency room. REGLAN (METOCLOPRAMIDE): Reglan has been prescribed. This medicine affects the stomach and intestines. It can be used to treat nausea and vomiting, to prevent reflux of stomach acid up into the esophagus, or to increase the contractions of the stomach and intestines. It is often prescribed for esophagitis, and for paralysis of the stomach in diabetics. Reglan can cause either mild restlessness or drowsiness. You should contact the doctor at once if you become extremely restless, anxious, or cannot sleep, or if you develop uncontrollable motions of the lips, tongue, or jaw. Do not take alcohol with this medicine. Do not drive or operate machinery until you have been taking this medicine long enough to know how it affects you. Call the doctor if you develop abdominal pains, lightheadedness, black stool, or blood in the stool or vomitus. USE OF DIPHENHYDRAMINE: Diphenhydramine (Benadryl) is an antihistamine and has been recommended to help treat your headache and to prevent side effects of other medications used to treat headaches. The medication can be repeated four times daily. Age Elixir (12.5 mg/tsp) 25 mg pill adult 1-2 tabs Antihistamines may cause drowsiness, especially with the first dose. Do not operate machinery or drive while under the effects of the medication. Do not combine the medication with alcohol, or with any other medication without talking to your doctor. TORADOL INJECTION: You have been given an injection of ketorolac tromethamine (Toradol). This is an excellent, safe drug for pain control. It also has potent antiinflammatory action. You should have significant pain relief within about one hour. Toradol is not addicting and is non-sedating. It does not interfere with driving or work. Call or return if you develop itching, hives, shortness of breath, or rash. FOLLOW-UP CARE: If you have been referred to a physician for follow-up care, call the physician s office for an appointment as you were instructed or within the next two days. If you experience worsening or a significant change in your symptoms, notify the physician immediately or return to the Emergency Department at any time for re-evaluation. Forms: Elevated Blood Pressure Referrals: RASTA OSMAN MD [ACTIVE STAFF] - Follow up as needed
== END 2017-09-13 16:00 | disposition home or self-care (01) ==
LOC: ER 12:56
DX: G44.009 Cluster headache syndrome, unspecified, not intractable (principal); H57.12 Ocular pain, left eye; F17.200 Nicotine dependence, unspecified, uncomplicated; Z86.73 Personal history of transient ischemic attack (TIA), and cerebral infarction without residual deficits
CPT/HCPCS: 99284; 96361; 96374; 96375; 70450; J1200; J1885; J2765; J7030

== ENCOUNTER → 2017-11-06 | Outpatient (CLI) | payer BC, OTHER ==
--- NOTE | 2017-11-06 18:11 | XCELERA REPORT ---
[address] [address] Transthoracic Echocardiogram Report Name: JESSI TERESA Age: 47 yrs Gender: Male : 1970 Patient Status: Outpatient Patient Location: Study Date: 11/06/2017 01:14 PM Height: 66 in Weight: 174 lb BSA: 1.9 m2 Reason For Study: CHEST PAIN Ordering Physician: RONALD LOTT Performed By: Marli Coello Interpretation Summary Technically difficult study per digital field service technician. AV poorly visualised,may be sclerosis, no by doppler, no AR. Mild MAC, no MS or MVP, and no MR seen, and no LA enlargement. No LVH, normal LVEF = 65% with no LV disastolic dysfunction, poor basal LV visuaslisation, suspect basal inferior wall and basal post wall hypokinesis, and IVS conduction abnormality. RH is poorly imaged, RA enlargement ids suspected, no TR seen to sample to derive RVSP to assess if pulm hypertension. No ASD. MMode/2D Measurements & Calculations RVDd: 3.2 cm LVIDd: 4.9 cm FS: 26.6 % Ao root diam: IVSd: 1.0 cm LVIDs: 3.6 cm EDV(Teich): 2.6 cm LVPWd: 1.00 cm 114.4 ml Ao root area: ESV(Teich): 55.1 ml 5.5 cm2 EF(Teich): LA dimension: 51.8 % 3.9 cm LVLd ap4: 8.2 cm SV(MOD-sp4): 64.0 ml LA A2Cs: LA A4Cs: 18.7 cm2 EDV(MOD-sp4): 18.0 cm2 97.0 ml LVLs ap4: 6.4 cm ESV(MOD-sp4): 33.0 ml EF(MOD-sp4): 66.0 % LA length: LA Vol Index (BP): LA Volume: 5.6 cm 27.0 ml/m2 50.9 ml Doppler Measurements & Calculations MV E max maxim: MV P1/2t max maxim: Ao V2 max: LV V1 max P.5 cm/sec 80.0 cm/sec 181.9 cm/sec 8.1 mmHg MV A max maxim: MV P1/2t: 92.8 msec Ao max PG: LV V1 max: 48.4 cm/sec 13.2 mmHg 142.6 cm/sec MV E/A: 1.7 MVA(P1/2t): 2.4 cm2 MV dec slope: 252.3 cm/sec2 PA V2 max: 91.8 cm/sec PA max P.4 mmHg Left Ventricle The left ventricle is grossly normal size. The left ventricular ejection fraction is normal. Doppler measurements suggest normal left ventricular diastolic function. There are regional wall motion abnormalities as specified. Not all wall segments were well visualized. Septal motion is consistent with conduction abnormality. There is basal inferior wall mild hypokinesis. There is basal posterior wall mild hypokinesis. There is no thrombus. Right Ventricle The right ventricle is grossly normal size. Atria The right atrium is dilated. The left atrial size is normal. The interatrial septum is intact with no evidence for an atrial septal defect. Mitral Valve There is mild mitral annular calcification. There is no evidence of mitral valve prolapse. There is no mitral valve stenosis. There is no mitral regurgitation noted. Aortic Valve The aortic valve is not well visualized secondary to technical limitations. There is no aortic valve stenosis. No aortic regurgitation is present. Tricuspid Valve The tricuspid valve is not well visualized secondary to technical limitations. No tricuspid regurgitation. Pulmonic Valve There is no pulmonic valvular regurgitation. Great Vessels There is aortic root sclerosis/calcification. I WMSI = 1.25 % Normal = 75 Segments Size X - Cannot 2 - 4 - 1-2 small Interpret 1 - Normal Hypokinetic 3 - AkineticDyskinetic 3-5 moderate 5 - 6-14 large Aneurysmal 15-16 diffuse : RONALD LOTT > Dionicio Timmons
== END ==
LOC: SP 12:58
PROVIDERS: ATTEND Specialist
DX: R07.9 Chest pain, unspecified (principal)
CPT/HCPCS: 93306

== ENCOUNTER 2018-02-12 11:59 | Emergency (ER) | payer OTHER, BC ==
[2018-02-12] MEDS ORDERED: METHYLPREDNISOLONE INJ 125 MG/2 ML SDV IV ONE (12:20)
[2018-02-12] MEDS ORDERED: NORMAL SALINE 1000 ML 1,000 ML IV ONE (12:21)
[2018-02-12] MEDS ORDERED: DIPHENHYDRAMINE HCL 50 MG/ML VIAL IV ONE ×2 (12:21→14:03)
[2018-02-12] MEDS ORDERED: EPINEPHRINE INJ/PF 1 MG/1 ML AMPULE IM ONE (12:22)
--- NOTE | 2018-02-12 12:22 | ER Document Report ---
ED General - General Chief Complaint: Rash Stated Complaint: RASH, THROAT IRRITATION Time Seen by Provider: 02/12/18 12:20 Notes: Patient recently has shoulder surgery. He was started on for new medicines including Percocet and Phenergan. He states yesterday he started to have itching and now today he has diffuse redness and itching and welts. He also states that his throat feels "swollen". And he states he had trouble swallowing his pills this morning. He denies any shortness of breath. TRAVEL OUTSIDE OF THE [place] IN LAST 30 DAYS: No - Related Data Allergies/Adverse Reactions: No Known Allergies Allergy (Verified 02/12/18 12:00) Past Medical History - Social History Smoking Status: Never Smoker Frequency of alcohol use: None Drug Abuse: None Family History: Reviewed & Not Pertinent Patient has suicidal ideation: No Patient has homicidal ideation: No - Past Medical History Cardiac Medical History: Reports: Hx Hypercholesterolemia Pulmonary Medical History: Reports: Hx Tuberculosis Neurological Medical History: Reports: Hx Migraine Renal/ Medical History: Denies: Hx Peritoneal Dialysis Psychiatric Medical History: Reports: Hx Depression, Hx Post Traumatic Stress Disorder Past Surgical History: Reports: Hx Abdominal Surgery - hernia x2, Hx Nose Surgery, Hx Orthopedic Surgery - knee Physical Exam - Vital signs Vitals: Temp Pulse Resp BP Pulse Ox 98.0 F 127 H 18 93/68 L 98 02/12/18 12:14 02/12/18 12:14 02/12/18 12:14 02/12/18 12:14 02/12/18 12:14 Course - Vital Signs Vital signs: Temp Pulse Resp BP Pulse Ox 98.0 F 127 H 18 93/68 L 98 02/12/18 12:14 02/12/18 12:14 02/12/18 12:14 02/12/18 12:14 02/12/18 12:14
[2018-02-12] MEDS ORDERED: FAMOTIDINE INJ/PF 20 MG/2 ML SDV IV ONE (12:25)
[2018-02-12] MEDS ORDERED: EPINEPHRINE INJ/PF 1 MG/1 ML AMPULE ONE (12:27)
--- NOTE | 2018-02-12 12:43 | ER Document Report ---
ED Skin Rash/Insect Bite/Abscs - General Chief Complaint: Rash Stated Complaint: RASH, THROAT IRRITATION Time Seen by Provider: 02/12/18 12:20 Notes: The patient is a 47-year-old male who presents with 1 day of diffuse pruritic rash and a few hours of feeling like his throat is swelling with difficulty swallowing. He had shoulder surgery a few days ago and was started on Percocet , Celexa and Phenergan. He took Benadryl at 8 AM and just prior to arrival with mild relief of his itchiness, but he still feels like his throat is swelling. He denies wheezing, stridor, headache TRAVEL OUTSIDE OF THE [place] IN LAST 30 DAYS: No - Related Data Allergies/Adverse Reactions: No Known Allergies Allergy (Verified 02/12/18 12:00) Past Medical History - General Information source: Patient - Social History Smoking Status: Never Smoker Frequency of alcohol use: None Drug Abuse: None Family History: Reviewed & Not Pertinent Patient has suicidal ideation: No Patient has homicidal ideation: No - Past Medical History Cardiac Medical History: Reports: Hx Hypercholesterolemia Pulmonary Medical History: Reports: Hx Tuberculosis Neurological Medical History: Reports: Hx Migraine Renal/ Medical History: Denies: Hx Peritoneal Dialysis Psychiatric Medical History: Reports: Hx Depression, Hx Post Traumatic Stress Disorder Past Surgical History: Reports: Hx Abdominal Surgery - hernia x2, Hx Nose Surgery, Hx Orthopedic Surgery - knee Review of Systems - Review of Systems Notes: REVIEW OF SYSTEMS: CONSTITUTIONAL: -fevers, -chills EENT: -eye pain, +difficulty swallowing, -nasal congestion CARDIOVASCULAR: -chest pain, -syncope. RESPIRATORY: -cough, -SOB GASTROINTESTINAL: -abdominal pain, -nausea, -vomiting, -diarrhea GENITOURINARY: -dysuria, -hematuria MUSCULOSKELETAL: -back pain, -neck pain SKIN: +rash HEMATOLOGIC: -easy bruising or bleeding. LYMPHATIC: -swollen, enlarged glands. NEUROLOGICAL: -altered mental status or loss of consciousness, -headache, - neurologic symptoms PSYCHIATRIC: -anxiety, -depression. ALL OTHER SYSTEMS REVIEWED AND NEGATIVE. Physical Exam - Vital signs Vitals: Temp Pulse Resp BP Pulse Ox 98.0 F 127 H 18 93/68 L 98 02/12/18 12:14 02/12/18 12:14 02/12/18 12:14 02/12/18 12:14 02/12/18 12:14 - Notes Notes: PHYSICAL EXAMINATION: GENERAL: Well-appearing, well-nourished and in no acute distress. HEAD: Atraumatic, normocephalic. EYES: Pupils equal round and reactive to light, extraocular movements intact, sclera anicteric, conjunctiva are normal. ENT: nares patent, oropharynx clear without exudates. Moist mucous membranes. NECK: Normal range of motion, supple without lymphadenopathy, no stridor. LUNGS: Breath sounds clear to auscultation bilaterally and equal. No wheezes rales or rhonchi. HEART: Regular rate and rhythm without murmurs ABDOMEN: Soft, nontender, normoactive bowel sounds. No guarding, no rebound. No masses appreciated. EXTREMITIES: Normal range of motion, no pitting or edema. No cyanosis. NEUROLOGICAL: Cranial nerves grossly intact. Normal speech, normal gait. Normal sensory and motor exams. PSYCH: Normal mood, normal affect. SKIN: Pruritic urticarial rash over bilateral arms and legs. Course - Re-evaluation Re-evalutation: Patient seen immediately on arrival due to concern for anaphylactic shock. Patient with diffuse pruritic rash and subjective feeling of difficulty swallowing. His oropharynx is widely patent and he has no swelling or stridor. He was provided with IM epinephrine, steroids, Pepcid and IVF. He took Benadryl just prior to arrival. Patient felt much better and his trouble swallowing and throat swelling completely resolved. His urticarial rash also improved. He was observed for 4 hours and no return of symptoms. Patient was started on Percocet, Phenergan and Celebrex after surgery, so unsure which of these medications are causing his allergic reaction. Will send home patient with an EpiPen and instructions on its use. - Vital Signs Vital signs: Temp Pulse Resp BP Pulse Ox 98.0 F 127 H 17 129/86 H 97 02/12/18 12:14 02/12/18 12:14 02/12/18 12:25 02/12/18 12:25 02/12/18 12:25 Discharge - Discharge Clinical Impression: Anaphylactic reaction Qualifiers: Encounter type: initial encounter Qualified Code(s): T78.2XXA - Anaphylactic shock, unspecified, initial encounter Condition: Stable Additional Instructions: ACUTE ALLERGIC REACTION: Your symptoms are due to an allergic reaction. Allergy can cause hives, swelling of the hands, feet, and face, hoarseness, and difficulty swallowing or breathing. It may be due to exposure to medication, animal dander, foods, infection, or insect bites. Medication is a common cause, even when prior use of this same medication caused no problems. Acute treatment may include adrenalin and antihistamines. Usually, the specific allergic agent can't be identified unless repeated episodes occur. Home treatment includes the following: (1) Stop any suspicious medications. This will be discussed with you. (2) Oral antihistamines for the next four to five days. Example, diphenhydramine (Benadryl) every four hours. (3) You may also use cimetidine (Tagamet), ranitidine (Zantac), or famotidine ( Pepcid) every four hours if diphenhydramine is not controlling itching and hives. (4) Avoid aspirin until the hives completely disappear. (5) Avoid hot baths or showers until the hives are completely gone. Call the doctor if faintness, difficulty swallowing, tightness in the chest , or wheezing occurs. EPINEPHRINE: An injection of epinephrine (also called adrenalin) is used to treat allergic reactions, asthma, and some other medical conditions. It is a stimulant medication that consticts blood vessels, relaxes smooth muscles such as in the bronchioles of the lung, elevates blood pressure, and increases heart rate. It can temporarily make you feel very nervous and shakey, but it's affects last only a short time, about 15 to 30 minutes at most. STEROID MEDICATION INJECTION: You have been given an injection of medicine of the cortisone/steroid class. This medication is used to control inflammation or allergy. It is often continued as a pill for a short period of time, until the acute process subsides. There are usually no side effects from short-term use of cortisone-like medications. Some persons feel an increased sense of well-being and are not sleepy at bedtime. Long-term use of cortisone medications is best avoided, unless required for a severe condition. If your condition does not remit, or relapses after the course of corticosteroid medication, you should consult your physician. ACID-SUPPRESSING MEDICATION: You have a prescription for medicine which reduces the stomach's secretion of acid. Examples include Zantac, Tagament, and Pepcid. These drugs are often used to allow healing of ulcers or esophagitis. They may be needed to prevent recurrence of ulcers in some patients, or to prevent damage from acid reflux in the esophagus. Take all medication as prescribed, even after the pain is gone. Regular antacids may be added as needed if you have symptoms while taking this medicine. These medications sometimes are prescribed for allergic reactions because they have anti-histaminic effects and relieve the rash and itching of the reaction. There are usually no side effects from this medication. But, in rare cases and particularly in the elderly, serious problems can occur. Contact your doctor if there is fever, rash, hallucinations, confusion, or unusual bruising. Contact your doctor at once if you develop lightheadedness, black or bloody stool, or bloody vomitus. ANTIHISTAMINES: An antihistamine has been given and/or prescribed to control your symptoms. Antihistamines are used for many reasons, including itching, watering eyes, runny nose, allergic swelling, hives, and insect stings. Antihistamines may cause drowsiness, especially with the first dose. Do not operate machinery or drive while under the effects of the medication. Other common side effects include dry mouth and eyes. In older persons, antihistamines can occasionally cause urinary retention, constipation, and trouble focusing the eyes. Do not combine the medication with alcohol, or with any other medication without talking to your doctor. USE OF DIPHENHYDRAMINE: The use of diphenhydramine (Benadryl) has been recommended to control allergic symptoms. The 25 mg strength is available over- the-counter, as well as the elixir. This antihistamine is used for many symptoms. It's useful for itching, watering eyes and nose, allergic swelling, hives, and insect stings. The medication can be repeated four times daily. Age Elixir (12.5 mg/tsp) 25 mg pill 2-3 yr 1/2 tsp 4-8 yr 1 tsp 9-14 yr 2 tsp one tab adult 1-2 tabs Antihistamines may cause drowsiness, especially with the first dose. Do not operate machinery or drive while under the effects of the medication. Do not combine the medication with alcohol, or with any other medication without talking to your doctor. FOLLOW-UP CARE: If you have been referred to a physician for follow-up care, call the physician s office for an appointment as you were instructed or within the next two days. If you experience worsening or a significant change in your symptoms, notify the physician immediately or return to the Emergency Department at any time for re-evaluation. Prescriptions: Epinephrine [Epipen 2-Damion] 0.3 mg IM ONCE PRN #2 unit PRN Reason: Prednisone [Deltasone 20 mg Tablet] 3 tab PO DAILY 4 Days tablet Forms: Elevated Blood Pressure
[2018-02-12 15:08] VITALS: BP 123/74
== END 2018-02-12 15:08 | disposition home or self-care (01) ==
LOC: ER 11:59
DX: R21 Rash and other nonspecific skin eruption (principal); T78.2XXA Anaphylactic shock, unspecified, initial encounter; X58.XXXA Exposure to other specified factors, initial encounter; E78.00 Pure hypercholesterolemia, unspecified
CPT/HCPCS: 99283; 96361; 96374; 96375; J1200; J0171; J2930; J7030; S0028

== ENCOUNTER 2018-02-14 19:25 | Emergency (ER) | payer OTHER, BC ==
[2018-02-14] MEDS ORDERED: METHYLPREDNISOLONE INJ 125 MG/2 ML SDV IV ONE (20:08)
[2018-02-14] MEDS ORDERED: DIPHENHYDRAMINE HCL 50 MG/ML VIAL IV ONE (20:09)
--- NOTE | 2018-02-14 20:11 | ER Document Report ---
ED Medical Screen (RME) - General Chief Complaint: Allergic Reaction Stated Complaint: POSSIBLE ALLERGIC REACTION Time Seen by Provider: 02/14/18 20:08 Notes: Patient recently had shoulder surgery and was given some Percocet and Phenergan and Celebrex. Patient came on Monday with anaphylaxis. He was treated with epinephrine steroids and antihistamines. He was sent home with steroids and antihistamines. He states now the reaction is getting worse. He states he is more red and itching. He states his skin feels very hot. He states that his chest feels tight. He also states that he stopped all medicines except Celebrex. He states he is still taking the Celebrex. He states he is also having facial swelling. TRAVEL OUTSIDE OF THE [place] IN LAST 30 DAYS: No - Related Data Allergies/Adverse Reactions: No Known Allergies Allergy (Verified 02/12/18 12:00) Past Medical History - Social History Chew tobacco use (# tins/day): No Frequency of alcohol use: None Drug Abuse: None - Past Medical History Cardiac Medical History: Reports: Hx Hypercholesterolemia Pulmonary Medical History: Reports: Hx Tuberculosis Neurological Medical History: Reports: Hx Migraine Renal/ Medical History: Denies: Hx Peritoneal Dialysis Psychiatric Medical History: Reports: Hx Depression, Hx Post Traumatic Stress Disorder Past Surgical History: Reports: Hx Abdominal Surgery - hernia x2, Hx Nose Surgery, Hx Orthopedic Surgery - knee Physical Exam - Vital signs Vitals: Temp Pulse Resp BP Pulse Ox 98.2 F 90 20 120/76 95 02/14/18 19:31 02/14/18 19:31 02/14/18 19:31 02/14/18 19:31 02/14/18 19:31 Course - Vital Signs Vital signs: Temp Pulse Resp BP Pulse Ox 98.2 F 90 20 120/76 95 02/14/18 19:31 02/14/18 19:31 02/14/18 19:31 02/14/18 19:31 02/14/18 19:31
[2018-02-14 21:02] LABS: HEMOGLOBIN 14.7 g/dL (13.5-17.0); MEAN CORPUSCULAR HEMOGLOBIN 29.8 pg (27.0-33.4); MEAN CORPUSCULAR HGB CONC 34.3 g/dL (32.0-36.0); MEAN CORPUSCULAR VOLUME 87 fl (80-97); PLATELET COUNT 311 10^3/uL (150-450); RED BLOOD COUNT 4.94 10^6/uL (4.35-5.55); RED CELL DISTRIBUTION WIDTH 13.4 % (11.5-14.0); WHITE BLOOD COUNT 20.4 10^3/uL (4.0-10.5)
[2018-02-14 21:17] LABS: ALANINE AMINOTRANSFERASE 29 U/L (21-72); ALKALINE PHOSPHATASE 95 U/L (38-126); ANION GAP 11 (5-19); ASPARTATE AMINO TRANSFERASE 20 U/L (17-59); BILIRUBIN,DIRECT 0.3 mg/dL (0.0-0.4); BILIRUBIN,TOTAL 0.5 mg/dL (0.2-1.3); BLOOD UREA NITROGEN 20 mg/dL (7-20); CALCIUM 9.7 mg/dL (8.4-10.2); CARBON DIOXIDE 27 mmol/L (22-30); CHLORIDE 100 mmol/L (98-107); GLUCOSE 119 mg/dL (75-110); POTASSIUM 4.2 mmol/L (3.6-5.0); SODIUM 138.1 mmol/L (137-145); TOTAL PROTEIN 6.4 g/dL (6.3-8.2)
[2018-02-14] MEDS ORDERED: NORMAL SALINE 1000 ML 1,000 ML IV ONE (21:19)
[2018-02-14 21:25] LABS: ABSOLUTE LYMPHOCYTES# (MANUAL) 1.8 10^3/uL (0.5-4.7); ABSOLUTE NEUTROPHILS# (MANUAL) 17.5 10^3/uL (1.7-8.2); BAND NEUTROPHILS % (MANUAL) 1 % (3-5); BASOPHILS % (MANUAL) 0 % (0-2); EOSINOPHILS % (MANUAL) 0 % (0-6); LYMPHOCYTES % (MANUAL) 8 % (13-45); MONOCYTES % (MANUAL) 5 % (3-13); SEGMENTED NEUTROPHILS % (MAN) 85 % (42-78); TOTAL CELLS COUNTED 100
[2018-02-14 21:26] LABS: PLATELET COMMENT ADEQUATE; PLATELET LARGE PRESENT; RBC MORPHOLOGY COMMENT NORMO-CYTIC/CHROMIC
[2018-02-14] MEDS ORDERED: HYDROXYZINE HCL 10 MG TABLET PO ONE (21:36)
--- NOTE | 2018-02-14 21:39 | ER Document Report ---
ED Allergic Reaction - General Chief Complaint: Allergic Reaction Stated Complaint: POSSIBLE ALLERGIC REACTION Time Seen by Provider: 02/14/18 20:08 Notes: The patient is a 47-year-old male who presents with diffuse urticarial rash and cheek swelling over the past 2 days. He was seen in the ER 4 days ago for anaphylaxis after he started Percocet, Phenergan and Celebrex after shoulder surgery. He started to feel better and is continuing to take his prednisone and Benadryl. Patient stopped the Percocet and Phenergan and is now only taking Celebrex. He denies difficulty swallowing, nausea, vomiting, tongue or throat swelling, wheezing, shortness of breath, current chest pain or new soaps/ detergents/foods. TRAVEL OUTSIDE OF THE [place] IN LAST 30 DAYS: No - Related Data Allergies/Adverse Reactions: No Known Allergies Allergy (Verified 02/12/18 12:00) Past Medical History - General Information source: Patient - Social History Smoking Status: Current Every Day Smoker Chew tobacco use (# tins/day): No Frequency of alcohol use: None Drug Abuse: None Family History: Reviewed & Not Pertinent Patient has suicidal ideation: No Patient has homicidal ideation: No - Past Medical History Cardiac Medical History: Reports: Hx Hypercholesterolemia Pulmonary Medical History: Reports: Hx Tuberculosis Neurological Medical History: Reports: Hx Migraine Renal/ Medical History: Denies: Hx Peritoneal Dialysis Psychiatric Medical History: Reports: Hx Depression, Hx Post Traumatic Stress Disorder Past Surgical History: Reports: Hx Abdominal Surgery - hernia x2, Hx Nose Surgery, Hx Orthopedic Surgery - knee Review of Systems - Review of Systems Notes: REVIEW OF SYSTEMS: CONSTITUTIONAL: -fevers, -chills EENT: -eye pain, -difficulty swallowing, -nasal congestion CARDIOVASCULAR: -chest pain, -syncope. RESPIRATORY: -cough, -SOB GASTROINTESTINAL: -abdominal pain, -nausea, -vomiting, -diarrhea GENITOURINARY: -dysuria, -hematuria MUSCULOSKELETAL: -back pain, -neck pain SKIN: -rash or skin lesions. HEMATOLOGIC: -easy bruising or bleeding. LYMPHATIC: -swollen, enlarged glands. NEUROLOGICAL: -altered mental status or loss of consciousness, -headache, - neurologic symptoms PSYCHIATRIC: -anxiety, -depression. ALL OTHER SYSTEMS REVIEWED AND NEGATIVE. Physical Exam - Vital signs Vitals: Temp Pulse Resp BP Pulse Ox 98.2 F 90 20 120/76 95 02/14/18 19:31 02/14/18 19:31 02/14/18 19:31 02/14/18 19:31 02/14/18 19:31 - Notes Notes: PHYSICAL EXAMINATION: GENERAL: Well-appearing, well-nourished and in no acute distress. HEAD: Atraumatic, normocephalic. EYES: Pupils equal round and reactive to light, extraocular movements intact, sclera anicteric, conjunctiva are normal. ENT: mild cheek swelling, no swelling in oropharynx, nares patent, oropharynx clear without exudates. Moist mucous membranes. NECK: Normal range of motion, supple without lymphadenopathy LUNGS: Breath sounds clear to auscultation bilaterally and equal. No wheezes rales or rhonchi. HEART: Regular rate and rhythm without murmurs ABDOMEN: Soft, nontender, normoactive bowel sounds. No guarding, no rebound. No masses appreciated. EXTREMITIES: Normal range of motion, no pitting or edema. No cyanosis. NEUROLOGICAL: Cranial nerves grossly intact. Normal speech, normal gait. Normal sensory and motor exams. PSYCH: Normal mood, normal affect. SKIN: Urticarial rash over left trunk, right upper legs and groin. Course - Re-evaluation Re-evalutation: Patient with diffuse urticarial rash, but no other signs of anaphylaxis at this time. Airways patent. Labs sent from triage show a leukocytosis, which is most likely related to his steroid use. No signs of infection or sepsis at this time. Instructed patient to stop the Celebrex and switch to Naprosyn, since he has had this in the past without any allergic reaction. He will also add Atarax and oatmeal baths with calamine lotion. Reminded him about EpiPen use and when to use it. If his symptoms do not resolve, he will follow-up with an renal nurse. Given strict return precautions and he understands. - Vital Signs Vital signs: Temp Pulse Resp BP Pulse Ox 98.2 F 90 20 120/76 95 02/14/18 19:31 02/14/18 19:31 02/14/18 19:31 02/14/18 19:31 02/14/18 19:31 - Laboratory Result Diagrams: 02/14/18 20:37 02/14/18 20:37 Laboratory results interpreted by me: 02/14/18 20:37 WBC 20.4 H Seg Neuts % (Manual) 85 H Band Neutrophils % 1 L Lymphocytes % (Manual) 8 L Abs Neuts (Manual) 17.5 H Discharge - Discharge Clinical Impression: Urticarial rash Condition: Stable Disposition: HOME, SELF-CARE Additional Instructions: Finish the steroids, add Atarax, calamine lotion and oatmeal baths to help with any itchiness. Return to the ER if you have any signs of anaphylaxis as we have discussed. Use your EpiPen when indicated. ACUTE ALLERGIC REACTION: Your symptoms are due to an allergic reaction. Allergy can cause hives, swelling of the hands, feet, and face, hoarseness, and difficulty swallowing or breathing. It may be due to exposure to medication, animal dander, foods, infection, or insect bites. Medication is a common cause, even when prior use of this same medication caused no problems. Acute treatment may include adrenalin and antihistamines. Usually, the specific allergic agent can't be identified unless repeated episodes occur. Home treatment includes the following: (1) Stop any suspicious medications. This will be discussed with you. (2) Oral antihistamines for the next four to five days. Example, diphenhydramine (Benadryl) every four hours. (3) You may also use cimetidine (Tagamet), ranitidine (Zantac), or famotidine ( Pepcid) every four hours if diphenhydramine is not controlling itching and hives. (4) Avoid aspirin until the hives completely disappear. (5) Avoid hot baths or showers until the hives are completely gone. Call the doctor if faintness, difficulty swallowing, tightness in the chest , or wheezing occurs. EPINEPHRINE: An injection of epinephrine (also called adrenalin) is used to treat allergic reactions, asthma, and some other medical conditions. It is a stimulant medication that consticts blood vessels, relaxes smooth muscles such as in the bronchioles of the lung, elevates blood pressure, and increases heart rate. It can temporarily make you feel very nervous and shakey, but it's affects last only a short time, about 15 to 30 minutes at most. STEROID MEDICATION INJECTION: You have been given an injection of medicine of the cortisone/steroid class. This medication is used to control inflammation or allergy. It is often continued as a pill for a short period of time, until the acute process subsides. There are usually no side effects from short-term use of cortisone-like medications. Some persons feel an increased sense of well-being and are not sleepy at bedtime. Long-term use of cortisone medications is best avoided, unless required for a severe condition. If your condition does not remit, or relapses after the course of corticosteroid medication, you should consult your physician. STEROID MEDICATION: You have been given a medicine of the cortisone/steroid class. This medication is used to control inflammation or allergy. It is usually only given for a short period of time, until the acute process subsides. There are usually no side effects from short-term use of cortisone-like medications. Some persons feel an increased sense of well-being and are not sleepy at bedtime. Long-term use of cortisone medications is best avoided, unless required for a severe condition. If your condition does not remit, or relapses after the course of corticosteroid medication, you should consult your physician. ACID-SUPPRESSING MEDICATION: You have a prescription for medicine which reduces the stomach's secretion of acid. Examples include Zantac, Tagament, and Pepcid. These drugs are often used to allow healing of ulcers or esophagitis. They may be needed to prevent recurrence of ulcers in some patients, or to prevent damage from acid reflux in the esophagus. Take all medication as prescribed, even after the pain is gone. Regular antacids may be added as needed if you have symptoms while taking this medicine. These medications sometimes are prescribed for allergic reactions because they have anti-histaminic effects and relieve the rash and itching of the reaction. There are usually no side effects from this medication. But, in rare cases and particularly in the elderly, serious problems can occur. Contact your doctor if there is fever, rash, hallucinations, confusion, or unusual bruising. Contact your doctor at once if you develop lightheadedness, black or bloody stool, or bloody vomitus. ANTIHISTAMINES: An antihistamine has been given and/or prescribed to control your symptoms. Antihistamines are used for many reasons, including itching, watering eyes, runny nose, allergic swelling, hives, and insect stings. Antihistamines may cause drowsiness, especially with the first dose. Do not operate machinery or drive while under the effects of the medication. Other common side effects include dry mouth and eyes. In older persons, antihistamines can occasionally cause urinary retention, constipation, and trouble focusing the eyes. Do not combine the medication with alcohol, or with any other medication without talking to your doctor. USE OF DIPHENHYDRAMINE: The use of diphenhydramine (Benadryl) has been recommended to control allergic symptoms. The 25 mg strength is available over- the-counter, as well as the elixir. This antihistamine is used for many symptoms. It's useful for itching, watering eyes and nose, allergic swelling, hives, and insect stings. The medication can be repeated four times daily. Age Elixir (12.5 mg/tsp) 25 mg pill 2-3 yr 1/2 tsp 4-8 yr 1 tsp 9-14 yr 2 tsp one tab adult 1-2 tabs Antihistamines may cause drowsiness, especially with the first dose. Do not operate machinery or drive while under the effects of the medication. Do not combine the medication with alcohol, or with any other medication without talking to your doctor. FOLLOW-UP CARE: If you have been referred to a physician for follow-up care, call the physician s office for an appointment as you were instructed or within the next two days. If you experience worsening or a significant change in your symptoms, notify the physician immediately or return to the Emergency Department at any time for re-evaluation. Prescriptions: Hydroxyzine HCl [Atarax 25 mg Tablet] 1 - 2 tab PO QID #25 tablet
[2018-02-14] MEDS ORDERED: FAMOTIDINE 20 MG TABLET PO ONE (21:54)
[2018-02-14 22:32] VITALS: BP 137/77
== END 2018-02-14 22:33 | disposition home or self-care (01) ==
LOC: ER 19:25
DX: L50.9 Urticaria, unspecified (principal); Z79.899 Other long term (current) drug therapy; F17.200 Nicotine dependence, unspecified, uncomplicated
CPT/HCPCS: 99283; 36415; 85025; 80053; J1200; J2930; J7030

== ENCOUNTER 2018-05-21 12:27 | Emergency (ER) | payer OTHER, BC ==
--- NOTE | 2018-05-21 13:13 | RADIOLOGY REPORT (SQ) ---
EXAM DESCRIPTION: CT HEAD WITHOUT COMPLETED DATE/TIME: 05/21/2018 12:48 pm REASON FOR STUDY: stroke alert, left side weakness and left side ansari COMPARISON: 09/13/2017 TECHNIQUE: Axial images acquired through the brain without intravenous contrast. Images reviewed wi th bone, brain and subdural windows. Additional sagittal and coronal reconstructions were generated. Images stored on PACS. All CT scanners at this facility use dose modulation, iterative reconstruction, and/or weight based d osing when appropriate to reduce radiation dose to as low as reasonably achievable (ALARA). [facility]: Dose Right [facility]: CareDose [facility]: Dose Right [facility]: Teradose 4D [facility]: [employer] Technologies RADIATION DOSE: CT Rad equipment meets quality standard of care and radiation dose reduction techniq ues were employed. CTDIvol: 53.2 mGy. DLP: 991 mGy-cm. mGy. LIMITATIONS: None. FINDINGS: VENTRICLES: Normal size and contour. The cisterns are patent. CEREBRUM: Old remote infarcts in the frontal lobes bilaterally and the right occipital lobe. No mas ses. No hemorrhage. No midline shift. No evidence for acute infarction. CEREBELLUM: No masses. No hemorrhage. No alteration of density. No evidence for acute infarction. EXTRAAXIAL SPACES: No fluid collections. No masses. ORBITS AND GLOBE: No intra- or extraconal masses. Normal contour of globe without masses. CALVARIUM: No fracture. PARANASAL SINUSES: Deviation of the nasal septum to the left of the midline. No fluid or mucosal th ickening. SOFT TISSUES: No mass or hematoma. OTHER: No other significant finding. IMPRESSION: 1 No significant interval changes since the prior examination dated 09/13/2017. No acut e intracranial abnormality. 2 Stable remote infarcts in the frontal lobes bilaterally and the right occipital lobe. 3. If clinically indicated, further evaluation with MRI Brain maybe helpful. EVIDENCE OF ACUTE STROKE: NO. COMMENT: 1Tthe results of this examination were discussed with the emergency department provider on 05/21/2018 at 13:06 hours. Quality ID # [id number]: Final reports with documentation of one or more dose reduction techniques (e.g., Au tomated exposure control, adjustment of the mA and/or kV according to patient size, use of iterative reconstruction technique) TECHNICAL DOCUMENTATION: JOB ID: [id number] [employer]- All Rights Reserved Reading location - IP/workstation name: [email or web address]
[2018-05-21] MEDS ORDERED: ONDANSETRON HCL INJ/PF 4 MG/2 ML SDV IV ONE (13:14)
[2018-05-21] MEDS ORDERED: LORAZEPAM INJ 2 MG/1 ML VIAL IV ONE (13:14)
[2018-05-21] MEDS ORDERED: MORPHINE SULFATE 10 MG/ML INJ IV ONE (13:14)
--- NOTE | 2018-05-21 13:14 | RADIOLOGY REPORT (SQ) ---
EXAM DESCRIPTION: CHEST SINGLE VIEW COMPLETED DATE/TIME: 05/21/2018 12:49 pm REASON FOR STUDY: R/O STROKE COMPARISON: None. EXAM PARAMETERS: NUMBER OF VIEWS: One view. TECHNIQUE: Single frontal radiographic view of the chest acquired. RADIATION DOSE: NA LIMITATIONS: None. FINDINGS: LUNGS AND PLEURA: No opacities, masses or pneumothorax. No pleural effusion. MEDIASTINUM AND HILAR STRUCTURES: No masses. Contour normal. HEART AND VASCULAR STRUCTURES: Heart normal in size. Normal vasculature. BONES: No acute findings. 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 OTHER: No other significant finding. IMPRESSION: NO ACUTE RADIOGRAPHIC FINDING IN THE CHEST. TECHNICAL DOCUMENTATION: JOB ID: [id number] [employer]- All Rights Reserved Reading location - IP/workstation name: [email or web address]
[2018-05-21 13:17] LABS: ABSOLUTE BASOPHILS # (AUTO) 0.1 10^3/uL (0.0-0.2); ABSOLUTE EOSINOPHILS # (AUTO) 0.1 10^3/uL (0.0-0.6); ABSOLUTE LYMPHOCYTES (AUTO) 3.2 10^3/uL (0.5-4.7); ABSOLUTE MONOCYTES (AUTO) 0.7 10^3/uL (0.1-1.4); ABSOLUTE NEUT (AUTO) 6.9 10^3/uL (1.7-8.2); BASOPHILS % (AUTO) 0.7 % (0-2); EOSINOPHILS % (AUTO) 1.1 % (0-6); HEMATOCRIT 41.7 % (37.9-51.0); HEMOGLOBIN 14.6 g/dL (13.5-17.0); LYMPHOCYTES % (AUTO) 29.2 % (13-45); MEAN CORPUSCULAR HEMOGLOBIN 30.4 pg (27.0-33.4); MEAN CORPUSCULAR HGB CONC 34.9 g/dL (32.0-36.0); MEAN CORPUSCULAR VOLUME 87 fl (80-97); PLATELET COUNT 189 10^3/uL (150-450); RED CELL DISTRIBUTION WIDTH 13.5 % (11.5-14.0); TOTAL CELLS COUNTED % (AUTO) 100 %; WHITE BLOOD COUNT 10.9 10^3/uL (4.0-10.5)
[2018-05-21 13:30] LABS: PROTHROMBIN TIME 12.7 SEC (11.4-15.4)
[2018-05-21 13:43] LABS: ALANINE AMINOTRANSFERASE 34 U/L (21-72); ALBUMIN 4.6 g/dL (3.5-5.0); ALKALINE PHOSPHATASE 90 U/L (38-126); ANION GAP 14 (5-19); ASPARTATE AMINO TRANSFERASE 25 U/L (17-59); BILIRUBIN,DIRECT 0.4 mg/dL (0.0-0.4); BILIRUBIN,TOTAL 0.5 mg/dL (0.2-1.3); BLOOD UREA NITROGEN 10 mg/dL (7-20); CALCIUM 9.6 mg/dL (8.4-10.2); CARBON DIOXIDE 24 mmol/L (22-30); CHLORIDE 104 mmol/L (98-107); GLUCOSE 103 mg/dL (75-110); POTASSIUM 4.1 mmol/L (3.6-5.0); TOTAL PROTEIN 7.4 g/dL (6.3-8.2)
--- NOTE | 2018-05-21 15:25 | ER Document Report ---
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 Therefore he came to the ED. He had not have any numbness or weakness of the left arm or left leg or right arm or right leg. Was able to ambulate able to grab things without any difficulty. No nausea vomiting neck stiffness. No other constitutional symptoms Onset: Sudden Duration: Just prior to arrival Severity: Moderate Quality: Sharp headache Context: Aortic valve abnormality Exacerbating factor and relieving factors: Noncontributory REVIEW OF SYSTEMS: CONSTITUTIONAL : Denies fever, chills, or sweats. Denies recent illness. EENT: Denies eye, ear, throat, or mouth pain or symptoms. Denies nasal or sinus congestion or discharge. Denies throat, tongue, or mouth swelling or difficulty swallowing. CARDIOVASCULAR: Denies chest pain. Denies palpitations or racing or irregular heart beat. Denies ankle edema. RESPIRATORY: Denies cough, cold, or chest congestion. Denies shortness of breath, difficulty breathing, or wheezing. GASTROINTESTINAL: Denies distention. Denies nausea, vomiting, or diarrhea. Denies blood in vomitus, stools, or per rectum. Denies black, tarry stools. Denies constipation. GENITOURINARY: Denies difficulty urinating, painful urination, burning, frequency, blood in urine, or discharge. FEMALE GENITOURINARY: Denies vaginal bleeding, heavy or abnormal periods, irregular periods. Denies vaginal discharge or odor. MUSCULOSKELETAL: Denies back or neck pain or stiffness. Denies joint pain or swelling. SKIN: Denies rash, lesions or sores. HEMATOLOGIC : Denies easy bruising or bleeding. LYMPHATIC: Denies swollen, enlarged glands. NEUROLOGICAL: Denies confusion or altered mental status. Denies passing out or loss of consciousness. Denies dizziness or lightheadedness. Denies headache. Denies weakness or paralysis or loss of use of either side. Denies problems with gait or speech. Denies sensory loss, numbness, or tingling. Denies seizures. PSYCHIATRIC: Denies anxiety or stress. Denies depression, suicidal ideation, or homicidal ideation. ALL OTHER SYSTEMS REVIEWED AND NEGATIVE. PHYSICAL EXAMINATION: GENERAL: Well-appearing, well-nourished and in no acute distress. HEAD: Atraumatic, normocephalic. EYES: Pupils equal round and reactive to light, extraocular movements intact, conjunctiva are normal. ENT: Nares patent, oropharynx clear without exudates. Moist mucous membranes. NECK: Normal range of motion, supple without lymphadenopathy LUNGS: Breath sounds clear to auscultation bilaterally and equal. No wheezes rales or rhonchi. HEART: Regular rate and rhythm without murmurs ABDOMEN: Soft, nontender, nondistended abdomen. No guarding, no rebound. No masses appreciated. Examination of genitals-deferred Musculoskeletal: Normal range of motion, no pitting or edema. No cyanosis. NEUROLOGICAL: Cranial nerves grossly intact. Normal speech, normal gait. Normal sensory, motor exams Questionable left facial weakness noted, otherwise pupils were equal reactive to light extraocular muscles were within normal range no nystagmus. No tongue deviation. Strength over both upper limbs and lower limbs are 4/5. No pronator drift. No sensory deficit PSYCH: Normal mood, normal affect. SKIN: Warm, Dry, normal turgor, no rashes or lesions noted. Dictation was performed using [email or web address] voice recognition software TRAVEL OUTSIDE OF THE [place] IN LAST 30 DAYS: No - HPI Patient complains to provider of: Dictated Onset: Just prior to arrival - Related Data Allergies/Adverse Reactions: No Known Allergies Allergy (Verified 02/12/18 12:00) Past Medical History - Social History Smoking Status: Current Every Day Smoker Cigarette use (# per day): No Chew tobacco use (# tins/day): No Smoking Education Provided: No Frequency of alcohol use: Rare Drug Abuse: None Lives with: Family Family History: Reviewed & Not Pertinent - Past Medical History Cardiac Medical History: Reports: Hx Hypercholesterolemia Pulmonary Medical History: Reports: Hx Tuberculosis Neurological Medical History: Reports: Hx Migraine Renal/ Medical History: Denies: Hx Peritoneal Dialysis Psychiatric Medical History: Reports: Hx Depression, Hx Post Traumatic Stress Disorder Past Surgical History: Reports: Hx Abdominal Surgery - hernia x2, Hx Nose Surgery, Hx Orthopedic Surgery - knee Review of Systems - Review of Systems Notes: Dictated Physical Exam - Vital signs Vitals: Temp Pulse Resp BP Pulse Ox 98.6 F 66 18 121/87 H 94 05/21/18 12:35 05/21/18 12:35 05/21/18 12:35 05/21/18 12:35 05/21/18 12:35 - Notes Notes: Dictated Course - Vital Signs Vital signs: Temp Pulse Resp BP Pulse Ox 98.6 F 66 15 106/55 L 94 05/21/18 12:35 05/21/18 12:35 05/21/18 15:02 05/21/18 15:02 05/21/18 15:02 - Laboratory Result Diagrams: 05/21/18 13:02 05/21/18 13:02 Laboratory results interpreted by me: 05/21/18 13:02 WBC 10.9 H - Diagnostic Test Radiology reviewed: Reports reviewed - Radiologist reported as stable bilateral occipital multiple infarct as well as left frontal lobe infarct. Which old - EKG Interpretation by Me EKG shows normal: Sinus rhythm Rate: Normal - Normal sinus rhythm at the rate of 62 bpm normal axis no acute ST or T wave changes, multiple PVCs and APCs noted. Discharge - Discharge Clinical Impression: TIA due to embolism Headache Qualifiers: Headache type: unspecified Headache chronicity pattern: acute headache Intractability: not intractable Qualified Code(s): R51 - Headache Disposition: AGAINST MEDICAL ADVICE
[2018-05-21 16:10] VITALS: BP 121/88
--- NOTE | 2018-05-21 22:07 | EKG REPORT ---
SEVERITY:- ABNORMAL ECG - SINUS RHYTHM VENTRICULAR TRIGEMINY PROBABLE LEFT ATRIAL ABNORMALITY : Confirmed by: Joan Schwartz MD 21-May-2018 22:07:02
== END 2018-05-21 16:10 | disposition left against medical advice (07) ==
LOC: ER 12:27
DX: G45.9 Transient cerebral ischemic attack, unspecified (principal); R51 Headache; R20.0 Anesthesia of skin; I49.3 Ventricular premature depolarization; I49.1 Atrial premature depolarization; F17.200 Nicotine dependence, unspecified, uncomplicated; Z86.73 Personal history of transient ischemic attack (TIA), and cerebral infarction without residual deficits
CPT/HCPCS: 93005; 99285; 96374; 96375; 36415; 85025; 85610; 80053; 71045; 70450; 93010; J2270; J2060; J2405

== ENCOUNTER 2019-05-09 12:57 | Emergency (ER) | payer BC, OTHER ==
[2019-05-09 13:12] VITALS: BP 125/68
[2019-05-09] MEDS ORDERED: METHOCARBAMOL 500 MG TABLET PO ONE (14:28)
--- NOTE | 2019-05-09 14:31 | ER Document Report ---
HPI - HPI Time Seen by Provider: 05/09/19 14:15 Pain Level: 4 Context: Patient is a 48-year-old male with a history of CVA, hypertension, hypothyroidism, high cholesterol who presents to the emergency department with a chief complaint of lower back pain. Patient states that 2 days ago he was getting out of his daughter [employer] and as he stepped onto the ground he heard a pop to his lower lumbar spine. Patient denies numbness or tingling to lower extremities. Patient denies loss of bowel or bladder. Patient denies numbness or tingling around the rectum or groin area. Patient states he is attempted 800 mg ibuprofen without relief. Patient states the lower back pain is worse with movement. Patient states he is hurting to the lumbar spine which is now radiating to the right and lower back. - CONSTITUTIONAL Constitutional: DENIES: Fever, Chills - EENT EENT: DENIES: Sore Throat, Ear Pain, Eye problems - NEURO Neurology: DENIES: Headache, Weakness, Vision blurred, Dizzinesss / Vertigo - CARDIOVASCULAR Cardiovascular: DENIES: Chest pain - RESPIRATORY Respiratory: DENIES: Trouble Breathing, Coughing - GASTROINTESTINAL Gastrointestinal: DENIES: Abdominal Pain, Black / Bloody Stools - URINARY Urinary: DENIES: Dysuria, Urgency, Frequency - MUSCULOSKELETAL Musculoskeletal: DENIES: Extremity pain Past Medical History - General Information source: Patient - Social History Smoking Status: Current Every Day Smoker Chew tobacco use (# tins/day): No Frequency of alcohol use: Occasional Drug Abuse: None Lives with: Family Family History: Reviewed & Not Pertinent Patient has suicidal ideation: No Patient has homicidal ideation: No - Past Medical History Cardiac Medical History: Reports: Hx Hypercholesterolemia, Hx Hypertension Pulmonary Medical History: Reports: Hx Tuberculosis EENT Medical History: Reports: None Neurological Medical History: Reports: Hx Migraine Endocrine Medical History: Reports: None Renal/ Medical History: Reports: None. Denies: Hx Peritoneal Dialysis Malignancy Medical History: Reports None GI Medical History: Reports: None Musculoskeletal Medical History: Reports None Skin Medical History: Reports None Psychiatric Medical History: Reports: Hx Depression, Hx Post Traumatic Stress Disorder Traumatic Medical History: Reports: None Infectious Medical History: Reports: None Past Surgical History: Reports: Hx Abdominal Surgery - hernia x2, Hx Nose Surgery, Hx Orthopedic Surgery - knee Vertical Provider Document - CONSTITUTIONAL Agree With Documented VS: Yes Exam Limitations: No Limitations General Appearance: Mild Distress Notes: GENERAL: Well-appearing, well-nourished and in no acute distress. HEAD: Atraumatic, normocephalic. EYES: Pupils equal round and reactive to light, extraocular movements intact, sclera anicteric, conjunctiva are normal. ENT: TMs normal, nares patent, oropharynx clear without exudates. Moist mucous membranes. NECK: Normal range of motion, supple without lymphadenopathy or JVD. LUNGS: Breath sounds clear to auscultation bilaterally and equal. No wheezes rales or rhonchi. HEART: Regular rate and rhythm without murmurs, rubs or gallops. ABDOMEN: Soft, nontender, normoactive bowel sounds. No guarding, no rebound. No masses appreciated. BACK: No cervical, thoracic midline tenderness. No saddle anesthesia, normal distal neurovascular exam. + lumbar tenderness around L1-L2. + lower paraspinal tenderness. There is no edema, ecchymosis or erythema to the lower back. GENITOURINARY: Deferred. EXTREMITIES: Normal range of motion, no pitting or edema. No clubbing or cyanosis. NEUROLOGICAL: Cranial nerves II through XII grossly intact. Normal speech, normal gait. PSYCH: Normal mood, normal affect. SKIN: Warm, Dry, normal turgor, no rashes or lesions noted. - INFECTION CONTROL TRAVEL OUTSIDE OF THE [place] IN LAST 30 DAYS: No Course - Re-evaluation Re-evalutation: 05/09/19 14:[address] himself to the emergency department today. I will obtain a lumbar spine x-ray as the did hear a "pop" when he got out of the truck 2 days ago and has since been in pain. Give the patient a Robaxin, I did explain to him that this is a muscle relaxer that does not tend to make people sleepy like Flexeril does. Patient verbalized understanding. 05/09/19 15:41 Patient is a lumbar spine x-ray was negative for any misalignment, fracture or abnormality. I did explain this to the patient. I will prescribe the patient a muscle relaxer as a prescription as he does have paraspinal lumbar pain and pain over the thoracolumbar fascia. She agrees with this plan and is aware to return for worsening signs or symptoms to include numbness or tingling to lower extremities, loss of bowel or bladder or any other concerning signs or symptoms. - Vital Signs Vital signs: Temp Pulse Resp BP Pulse Ox 98 F 66 18 125/68 97 05/09/19 13:11 05/09/19 13:11 05/09/19 13:11 05/09/19 13:11 05/09/19 13:11 Discharge - Discharge Clinical Impression: Musculoskeletal back pain Low back strain Qualifiers: Encounter type: initial encounter Qualified Code(s): S39.012A - Strain of mu scle, fascia and tendon of lower back, initial encounter Condition: Stable Disposition: HOME, SELF-CARE Additional Instructions: Today you were seen in the emergency department for low back pain. We did obtain an x-ray of the lumbar spine which was negative for any acute abnormality. Your symptoms could be musculoskeletal related or could be from a tendon injury in your back. The initial treatment is to use cool compresses over the area. Since it has been a few days since the incident you can switch to warm compresses as this may help with your discomfort. You are being prescribed muscle relaxers called Robaxin which is to be used in combination with anti-inflammatories. [facility] if worsening signs or symptoms to include numbness or tingling in lower extremities, loss of bowel or bladder, numbness around the groin or rectal region, swelling around the back or discoloration. Muscle Relaxers Muscle relaxing medications are usually prescribed for acute muscle spasm or injury to the neck and back. They are often combined with antiinflammatory pain medication for increased relief. You may stop the muscle relaxer when the pain and stiffness have improved. Start the medication again if spasms recur. Muscle relaxers may cause drowsiness, especially with the first dose. Do not operate machinery or drive while under the effects of the medication. Most muscle relaxers last up to 24 hours. Do not combine the medication with alcohol. Muscle Strain You have strained a muscle -- torn the fibers within the muscle. This often occurs with strenuous exertion, or during an injury that suddenly stretches the muscle. The seriousness of a strain varies. Some strains heal within days, others cause problems for months. X-rays cannot show a muscle strain. X-rays are taken only if symptoms suggest that a fracture could be present. The usual treatment of a muscle strain is rest and ice packs. Sometimes, a sling, splint, or crutches may be necessary to rest the muscle. The muscle can be used again once pain subsides. Severe strains require a special exercise and stretching program to prevent permanent stiffness and disability. Your doctor will advise you if this will be necessary. Call the doctor immediately if pain or swelling becomes severe, or if numbness or discoloration develop. Prescriptions: Methocarbamol [Robaxin] 1,000 mg PO QID #15 tablet [facility]: [facility] - Follow up as needed
--- NOTE | 2019-05-09 14:55 | RADIOLOGY REPORT (SQ) ---
EXAM DESCRIPTION: L SPINE WHOLE COMPLETED DATE/TIME: 05/09/2019 2:48 pm REASON FOR STUDY: heard pop to lower back getting out of truck COMPARISON: None. NUMBER OF VIEWS: Three views. TECHNIQUE: AP, lateral and sacral radiographic images acquired of the lumbar spine. LIMITATIONS: None. FINDINGS: MINERALIZATION: Normal. SEGMENTATION: Normal. No transitional anatomy. ALIGNMENT: Normal. VERTEBRAE: Maintained height. No fracture or worrisome bone lesion. DISCS: Preserved height. No significant osteophytes or end plate irregularity. POSTERIOR ELEMENTS: Pedicles and facets are intact. No pars defect or posterior arch defects. HARDWARE: None in the spine. PARASPINAL SOFT TISSUES: Normal. PELVIS: Intact as visualized. No fractures or worrisome bone lesions. SI joints intact. OTHER: No other significant finding. IMPRESSION: NORMAL 3 VIEW LUMBAR SPINE. TECHNICAL DOCUMENTATION: JOB ID: [id number] [employer]- All Rights Reserved Reading location - IP/workstation name: [email or web address]
[2019-05-09] MEDS ORDERED: KETOROLAC TROMETHAMINE INJ/PF 30 MG/1 ML SDV IM ONE (15:40)
== END 2019-05-09 16:15 | disposition home or self-care (01) ==
LOC: ER 12:57
DX: S39.012A Strain of muscle, fascia and tendon of lower back, initial encounter (principal); M54.9 Dorsalgia, unspecified; I10 Essential (primary) hypertension; Z79.899 Other long term (current) drug therapy; F17.200 Nicotine dependence, unspecified, uncomplicated; X58.XXXA Exposure to other specified factors, initial encounter
CPT/HCPCS: 99283; 96372; 72110; J1885

== ENCOUNTER → 2020-07-08 | Outpatient (CLI) | payer OTHER ==
[2020-07-08 12:49] VITALS: BP 124/79
--- NOTE | 2020-07-08 12:49 | ER RDC ASSESSMENT REPORT ---
Intake - In the Last 14 days Have you traveled outside [place]?: No Have you been in close contact with someone CONFIRMED: Yes Worked in Healthcare?: No - Symptoms Subjective Fever([place] feverish): No Chills: No Muscule Aches: No Runny Nose: No Sore Throat: No Cough (New or worsening chronic cough): No Shortness of breath: No Nausea or Vomiting: No Headache: No Abdominal Pain: No Diarrhea(3 or more loose stools in last 24 hours): No - Do you have any of the following Chronic lung disease: Asthma or emphysema or COPD: No Cystic Fibrosis: No Diabetes: No High Blood Pressure: No Cardiovascular Disease: Yes Cardiovascular Disease Comment: History of A. fib and high cholesterol Chronic Kidney Disease: No Chronic Liver Disease: No Chronic blood disorder like Sickle Cell Disease: No Weak immune system due to disease or medication: No Neurologic condition that limits movement: No Developmental delay - Moderate to Severe: No Recent (within past 2 weeks) or current : No Morbid Obesity (>100 pounds over ideal weight): No Obesity Comment: Height 5 feet 6 inches weight 168 pounds. - Objective Temperature: 98.1 F Pulse Rate: 68 Respiratory Rate: 18 Blood Pressure: 124/79 O2 Sat by Pulse Oximetry: 95 Objective: Given above, testing performed: If Testing Performed: Test Specimen Type Sent to General - General Information source: Patient Notes: Patient here at [facility] for cover testing patient reports employee tested positive on Monday patient was exposed to patient last . Patient denies any symptoms at this point. [facility]. - Related Data Allergies/Adverse Reactions: celecoxib [From Celebrex] Allergy (Verified 05/09/19 14:22) Past Medical History - General Information source: Patient - Social History Smoking Status: Current Every Day Smoker - Smokes a pack a day Smoking Education Provided: Yes - Quit smoking Family History: Reviewed & Not Pertinent - Past Medical History Cardiac Medical History: Reports: Hx Hypercholesterolemia, Hx Hypertension Pulmonary Medical History: Reports: Hx Tuberculosis Neurological Medical History: Reports: Hx Migraine Renal/ Medical History: Denies: Hx Peritoneal Dialysis Psychiatric Medical History: Reports: Hx Depression, Hx Post Traumatic Stress Disorder Past Surgical History: Reports: Hx Abdominal Surgery - hernia x2, Hx Nose Surgery, Hx Orthopedic Surgery - knee Physical Exam - General General appearance: Appears well, Alert In distress: None Notes: PHYSICAL EXAMINATION: GENERAL: Well-appearing and in no acute distress. HEAD: Atraumatic, normocephalic. EYES: sclera anicteric, conjunctiva are normal. ENT: nares patent. Moist mucous membranes. NECK: Normal range of motion, supple without lymphadenopathy LUNGS: CTAB and equal. No wheezes rales or rhonchi. Respirations even and unlabored lung sounds clear. HEART: Regular rate and rhythm without murmurs ABDOMEN: Soft, nontender, normal bowel sounds, no guarding. EXTREMITIES: No cyanosis. NEUROLOGICAL: Normal speech. PSYCH: Normal mood, normal affect. SKIN: Warm, Dry, normal turgor, Diagnostic Results Laboratory Results: Pending cover testing results. Patient provided instructions regarding coverage to include: As a person under investigation for Covid 19, the [facility] of Health and Human Services, division of public health advises you to adhere to the following guidance until your test results are reported to you. If your test result is positive, you will receive additional information from your provider and your local health department at that time. Remain at home until you are cleared by the health provider or public health authorities. Keep a log of visitors to your home, notify any visitors to your home of your isolation status. If you plan to move to a new address or leave the [facility], notify the local health department in your County. Call your doctor or seek care if you have an urgent medical need. Before seeking medical care, call ahead to get instructions from the provider before arriving at the medical office clinic or hospital. Notify them that you are being tested for the virus that causes Covid 19 so that arrangements can be made, as necessary, to prevent transmission to others in the healthcare setting. Next, notify the local health department in your county. If a medical emergency arises and you need to call 911, inform the first responders that you are being tested for the virus that causes Covid 19. Next, notify the local health department in your county. Patient Education/Counseling Counseling/Education: Patient presents with upper respiratory symptoms worrisome for possible Covid 19. Patient does not have emergency worring symptoms such as difficulty breathing, shortness of breath, chest pain, pressure, confusion or cyanosis. Patient appears suitable for discharge. [facility] To ED for any change in condition. patient's vital signs are stable and patient is nontoxic in appearance. Good return precautions have been discussed with patient, patient verbalized understanding and is agreeable with discharge plan of care at this time. RDC Discharge - Discharge Clinical Impression: Encounter for screening laboratory testing for COVID-19 virus in asymptomatic patient Condition: Stable Disposition: Home; Selfcare
== END ==
LOC: RDC 11:52
PROVIDERS: ATTEND Nurse Practitioner Family
DX: Z03.818 Encounter for observation for suspected exposure to other biological agents ruled out (principal)
CPT/HCPCS: 87635; C9803; 99201; 99211

== ENCOUNTER 2020-09-28 14:55 | Emergency (ER) | payer OTHER ==
[2020-09-28 15:01] VITALS: BP 155/62
--- NOTE | 2020-09-28 15:25 | ER Document Report ---
HPI - HPI Patient complains to provider of: Back pain Time Seen by Provider: 09/28/20 15:09 Onset/Duration: Persistent Quality of pain: Sharp Pain Level: 4 Context: Patient presents complaining of flareup of chronic low back pain that worsened recently. Patient denies any injury. Patient states pain is to the left lower back and buttock area that radiates to the posterior aspect of the left leg and radiates down to the level of the knee. Patient denies any injury or fever. Patient denies any urinary retention or incontinence. Patient has had this pain symptoms before and denies any relief with his usual medications. Patient states he has a history of arthritis. Associated Symptoms: Other - Low back pain. denies: Fever Exacerbated by: Movement Relieved by: Denies Similar symptoms previously: Yes Recently seen / treated by doctor: No - ROS ROS below otherwise negative: Yes Systems Reviewed and Negative: Yes All other systems reviewed and negative - CONSTITUTIONAL Constitutional: DENIES: Fever, Chills - NEURO Neurology: DENIES: Weakness - GASTROINTESTINAL Gastrointestinal: DENIES: Nausea, Patient vomiting - URINARY Urinary: DENIES: Dysuria, Urgency, Frequency - MUSCULOSKELETAL Musculoskeletal: REPORTS: Extremity pain, Back Pain - DERM Skin Color: Normal Skin Problems: None Past Medical History - General Information source: Patient - Social History Smoking Status: Current Every Day Smoker Frequency of alcohol use: Social Drug Abuse: None Occupation: [employer] Family History: Reviewed & Not Pertinent - Past Medical History Cardiac Medical History: Reports: Hx Hypercholesterolemia, Hx Hypertension Pulmonary Medical History: Reports: Hx Tuberculosis Neurological Medical History: Reports: Hx Migraine Renal/ Medical History: Denies: Hx Peritoneal Dialysis Musculoskeletal Medical History: Reports Hx Arthritis - Chronic back pain Psychiatric Medical History: Reports: Hx Depression, Hx Post Traumatic Stress Disorder Past Surgical History: Reports: Hx Abdominal Surgery - hernia x2, Hx Nose Surgery, Hx Orthopedic Surgery - knee Vertical Provider Document - CONSTITUTIONAL Agree With Documented VS: Yes Exam Limitations: No Limitations General Appearance: WD/WN, No Apparent Distress Notes: PHYSICAL EXAMINATION: GENERAL: Well-appearing, well-nourished and in no acute distress. HEAD: Atraumatic, normocephalic. EYES: sclera clear, anicteric, conjunctiva are normal. ENT: nares patent, Moist mucous membranes. NECK: Normal range of motion, supple LUNGS: respirations unlabored HEART: Regular rate and rhythm without murmurs EXTREMITIES: Normal range of motion, no pitting or edema. No cyanosis. Gait normal, pt ambulates without difficulty BACK: Left lower lumbar paraspinal tenderness, left SI joint tenderness, no midline tenderness, no deformities or step-offs. No CVA tenderness. NEUROLOGICAL: Cranial nerves grossly intact. Normal speech, normal gait. No saddle anesthesia. No foot drop PSYCH: Normal mood, normal affect. SKIN: Warm, Dry, normal turgor, no rashes or lesions noted. - INFECTION CONTROL TRAVEL OUTSIDE OF THE [place] IN LAST 30 DAYS: No Course - Re-evaluation Re-evalutation: 09/28/20 15:35 The patient presents with low back pain without signs of spinal cord compression, cauda equina syndrome, infection, aneurysm, or other serious etiology. The patient is neurologically intact. Given the extremely risk of these diagnoses further testing and evaluation for these possibilities does not appear to be indicated at this time. Patient has been instructed to return if the symptoms worsen or change in any way. - Vital Signs Vital signs: Temp Pulse Resp BP Pulse Ox 98.8 F 88 16 155/62 H 100 09/28/20 15:00 09/28/20 15:00 09/28/20 15:00 09/28/20 15:00 09/28/20 15:00 Discharge - Discharge Clinical Impression: Low back pain Qualifiers: Chronicity: chronic Back pain laterality: left Sciatica presence: with sciatica Sciatica laterality: sciatica of left side Qualified Code(s): M54.42 - Lumbago with sciatica, left side Condition: Stable Disposition: HOME, SELF-CARE Instructions: Ice Packs ([facility]), Low Back Pain ([facility]), Sciatica ([facility]) Additional Instructions: Return immediately for any new or worsening symptoms Followup with your primary care provider, call tomorrow to make a followup appointment Prescriptions: Lidocaine [Lidoderm 5% (700 mg) Transdermal Patch] 1 patch TP DAILY PRN #10 adh..patch PRN Reason: Methylprednisolone [Medrol Dosepack (4 mg/Tab) 21 Tab/Dosepak] 4 mg PO ASDIR PRN #21 tab.ds.pk PRN Reason: Hydrocodone/Acetaminophen [[place] 5-325 mg Tablet] 1 tab PO Q6 PRN #6 tablet PRN Reason: Referrals: [facility] [Primary [facility]] - Follow up as needed [facility] [Provider Group] - Follow up as needed [facility] [Provider Group] - Follow up as needed
== END 2020-09-28 15:35 | disposition home or self-care (01) ==
LOC: ER 14:55
DX: M54.42 Lumbago with sciatica, left side (principal); F17.200 Nicotine dependence, unspecified, uncomplicated; E78.00 Pure hypercholesterolemia, unspecified; I10 Essential (primary) hypertension
CPT/HCPCS: 99284